=== PATIENT | male | born 1940 | race Caucasian/White ===

== ENCOUNTER 2022-04-20 17:01 | Inpatient (IN) | payer OTHER ==
[~2022-04-20] VITALS: Ht 165.1 cm; Wt 65.8 kg
[2022-04-20] MEDS ORDERED: DEXTROSE 50% JECT 50 ML DISP.SYRIN ONE (17:11)
[2022-04-20 17:14] VITALS: BP_SYST 120
--- NOTE | 2022-04-20 17:20 | NUR ---
PT BIBA AWAKE AND CONFUSED, AOX1. PT BROUGHT IN FROM [facility] FOR RESPIRATORY DISTRESS, ALTERED AND HYPOGLYCEMIC. PT BS WAS 78 UPON ARRIVAL. PT O2 WAS 98% ON RA. PT HAS HX OF CHF, DM2, MO, COLON CANCER, BOWEL RESECTION W WOUND VAC.
--- NOTE | 2022-04-20 17:21 | NUR ---
MD DR AMAYA AT BEDSIDE
[2022-04-20 17:45] LABS: BASOPHILS % (AUTO) 0.5 % (0.0-2.0); EOSINOPHILS # (AUTO) 0.2 K/uL (0.0-0.4); EOSINOPHILS % (AUTO) 2.1 % (0.0-4.0); HEMATOCRIT 23.6 % (36-54); LYMPHOCYTES # (AUTO) 0.6 K/uL (1.0-5.5); LYMPHOCYTES % (AUTO) 6.4 % (20.5-51.5); MEAN CORPUSCULAR HEMOGLOBIN 29 pg (27-31); MEAN CORPUSCULAR HGB CONC 33 % (32-36); MEAN CORPUSCULAR VOLUME 88 fL (79.0-98.0); MONOCYTES # (AUTO) 0.9 K/uL (0.0-1.0); MONOCYTES % (AUTO) 9.8 % (1.7-9.3); NEUTROPHILS # (AUTO) 7.1 K/uL (1.8-7.7); NEUTROPHILS % (AUTO) 81.2 % (40.0-70.0); PLATELET COUNT (AUTO) 317 K/uL (130-430); RED BLOOD CELL COUNT(AUTO) 2.68 MIL/uL (4.2-6.2); WHITE BLOOD COUNT (AUTO) 8.8 K/uL (4.8-10.8)
[2022-04-20 17:48] LABS: HEMOGLOBIN 7.8 g/dL (14.0-18.0)
[2022-04-20] MEDS ORDERED: APIX2.5T PO (17:49)
[2022-04-20] MEDS ORDERED: GLIP10TA21 PO (17:49)
[2022-04-20] MEDS ORDERED: LINE600T15 PO (17:49)
[2022-04-20] MEDS ORDERED: DOCU-144 PO (17:49)
[2022-04-20] MEDS ORDERED: BISA-79 PO (17:49)
[2022-04-20] MEDS ORDERED: GABA-529 PO (17:49)
[2022-04-20] MEDS ORDERED: ATOR40TA68 PO (17:49)
[2022-04-20] MEDS ORDERED: FER300L PO (17:49)
[2022-04-20] MEDS ORDERED: CARV12.548 PO (17:49)
--- NOTE | 2022-04-20 17:50 | NUR ---
COVID AND MRSA SWABS COLLECTED AND SENT TO LAB.
[2022-04-20 17:56] LABS: ANION GAP 5 (5-15); CALCIUM 7.7 mg/dL (8.4-11.0); CHLORIDE 103 mmol/L (98-107); CREATININE 2.04 mg/dL (0.55-1.30); GLUCOSE 83 mg/dL (70-99); INR 1.3 (0.80-1.20); PROTHROMBIN TIME 12.9 SECS (9.5-12.5); UREA NITROGEN, BLOOD 48 mg/dL (8-21)
[2022-04-20] MEDS ORDERED: PANT40GR (17:56)
[2022-04-20] MEDS ORDERED: METR500T PO (17:56)
[2022-04-20] MEDS ORDERED: INSU100V7 SUBCUT (17:56)
[2022-04-20] MEDS ORDERED: THIA100T73 (17:56)
[2022-04-20] MEDS ORDERED: VALS80TA31 (17:56)
[2022-04-20] MEDS ORDERED: MULT-1117 (17:56)
[2022-04-20] MEDS ORDERED: LACT1CAP69 (17:56)
[2022-04-20] MEDS ORDERED: MOM PO (17:56)
[2022-04-20] MEDS ORDERED: SENN-153 (17:56)
[2022-04-20] MEDS ORDERED: DEXTROSE 50% JECT 50 ML DISP.SYRIN IVP ONE (18:00)
[2022-04-20] MEDS ORDERED: NACL 0.9% 1,000 ML IV ONE ×2 (18:00→18:30)
[2022-04-20 18:01] LABS: ALANINE AMINOTRANSFERASE 22 U/L (12-78); ALBUMIN 1.3 g/dL (3.4-4.8); ASPARTATE AMINOTRANSFERASE 23 U/L (10-37); TOTAL BILIRUBIN 0.5 mg/dL (0.0-1.0)
--- NOTE | 2022-04-20 18:08 | NUR ---
MD DR AMAYA AT BEDSIDE TO PLACE CENTRAL LINE
[2022-04-20] MEDS ORDERED: NOREPINEPHRINE BITARTRATE 4 MG in NS 246 ML IV ONE (18:30)
--- NOTE | 2022-04-20 18:32 | NUR ---
XRAY AT BEDSIDE
--- NOTE | 2022-04-20 18:42 | NUR ---
PT TAKEN TO CT IN [facility] WITH NURSE AT BEDSIDE.
--- NOTE | 2022-04-20 19:16 | NUR ---
REPORT GIVEN TO ROMY VILLALOBOS. PT IN STABLE CONDITION.
--- NOTE | 2022-04-20 19:24 | NUR ---
Received report from Kevin RN Pt resting comfortably in bed VSS Verbally responsive Family bedside Will continue to monitor
--- NOTE | 2022-04-20 19:25 | NUR ---
Admit bed requested Patient will be admitted to care of . Admitted to ICU unit. Diagnosis Renal Failure, Hypotension Inpatient (Yes or No) No Observation (Yes or No) No Orientation concerns or request close to nursing station (Yes or No) yes Covid Status Pending On vent or bipap No Isolation requirements No Needs a sitter No From Home (Yes or if No enter name of facility) Facility, [facility] Requires Dialysis (Yes or No) No Med Rec Completed (Yes of No) Yes
[2022-04-20] MEDS ORDERED: D5NS 500 ML IV SCH (19:30)
--- NOTE | 2022-04-20 21:45 | NUR ---
Pt resting comfortably at this time AOX1-2 VSS Will continue to monitor
--- NOTE | 2022-04-21 06:47 | NUR ---
Pt resting comfortably in bed AOX4 VSS Able to make needs known Will continue to monitor
--- NOTE | 2022-04-21 07:13 | NUR ---
Gave report to WILFREDO Lopez
--- NOTE | 2022-04-21 07:24 | NUR ---
Received report from Ar VILLALOBOS. Pt noted to be awake a/o x4 and verbally responsive. Breathing even and unlabored. No acute distress noted. IV sites clean, dry, intact and patent. Pt denies of any complaints at this time. Safety measures in place.
--- NOTE | 2022-04-21 08:08 | NUR ---
paged md christensen for possible downgrade to tele. awaiting call back
--- NOTE | 2022-04-21 08:18 | NUR ---
MD christensen called back and verbalized to downgrade pt from ICU to tele.
--- NOTE | 2022-04-21 09:23 | NUR ---
PROVIDED BEDSIDE REPORT TO WILFREDO ACUÑA. PT TRANSFERRED ONTO TELE BED A IN ROOM 112. PT AWAKE, A/O X4 AND VERBALLY RESPONSIVE. NO ACUTE DISTRESS NOTED. BREATHING EVEN AND UNLABORED. NO CHANGES NOTED.
--- NOTE | 2022-04-21 09:29 | NUR ---
CONSULTATION PAGED/CALLED Reason for Consultation: [] RENAL FAIL Person Who was Notified: [] ASHLEY Consulting Physician: [] DR DIOP Ict Systems Test Engineer Specialty: [] PULMO Ordering Physician: [] DR KOEHLER
--- NOTE | 2022-04-21 09:35 | NUR ---
CONSULTATION PAGED/CALLED Reason for Consultation: [] RENAL FAIL Person Who was Notified: GOSIA Consulting Physician: [] SANJUANITA WILDE Otter Trawler Boatswain Specialty: [] NEPHRO Ordering Physician: [] DR KOEHLER
[2022-04-21 09:45] VITALS: BP_SYST 121
[2022-04-21 09:52] VITALS: BP_SYST 121
[2022-04-21 12:00] VITALS: BP_SYST 125
[2022-04-21] MEDS ORDERED: MILK OF MAGNESIA 30 ML UDC PO PRN (12:00)
--- NOTE | 2022-04-21 15:18 | NUR ---
CONSULTATION PAGED/CALLED Reason for Consultation: AMS Person Who was Notified: DR GIBSON Consulting Physician: MALLORY GIBSON Ordering Physician: MARSHALL KOEHLER
[2022-04-21 16:00] VITALS: BP_SYST 123
[2022-04-21] MEDS: metroNIDAZOLE 500 MG TABLET PO SCH ×2 (16:34→20:26)
[2022-04-21] MEDS ORDERED: INSULIN REGULAR, HUMAN 100 UNITS/ML, 3 ML VIAL SUBCUT SCH (17:00)
[2022-04-21] MEDS: INSULIN REGULAR, HUMAN 100 UNITS/ML, 3 ML VIAL (humuLIN R) SUBCUT PRN ×2 (17:57→20:33)
--- NOTE | 2022-04-21 19:25 | NUR ---
OPENING NOTE PT IS WORKING WITH PT, SON BEDSIDE. NO APPARENT DISTRESS NOTED AT THIS TIME. BED IN LOWEST POSITION WITH FALL AND SAFETY PRECAUTIONS IN PLACE. CALL LIGHT WITHIN REACH.
[2022-04-21 20:00] VITALS: BP_SYST 167
[2022-04-21] MEDS: GABAPENTIN 100 MG CAPSULE PO SCH (20:26)
[2022-04-21] MEDS: DOCUSATE SODIUM 100 MG CAPSULE PO SCH (20:26)
[2022-04-21] MEDS: LINEZOLID 600 MG TABLET PO SCH (20:26)
[2022-04-21] MEDS: LACTOBACILLUS RHAMNOSUS GG 1 CAP CAPSULE PO SCH (20:26)
[2022-04-21] MEDS: D5NS 1,000 ML IV SCH (20:26)
[2022-04-21] MEDS: ATORVASTATIN 20 MG TABLET PO SCH (20:26)
[2022-04-21] MEDS: CARVEDILOL 12.5 MG TABLET (COREG) PO SCH (20:27)
[2022-04-21] MEDS: APIXABAN 2.5 MG TABLET PO SCH (20:31)
[2022-04-21] MEDS ORDERED: VALSARTAN Non-Formulary 80 MG TABLET PO SCH (21:00)
[2022-04-22 00:17] VITALS: BP_SYST 97
--- NOTE | 2022-04-22 00:20 | NUR ---
ROUNDS PT LYING IN WITH EYES CLOSED. NO APPARENT SIGNS OF DISTRESS NOTED. CALL LIGHT WITHIN REACH. FAYE DRAINING TO GRAVITY.
--- NOTE | 2022-04-22 02:20 | NUR ---
ROUNDS PT LYING IN WITH EYES CLOSED. NO APPARENT SIGNS OF DISTRESS NOTED. CALL LIGHT WITHIN REACH. FAYE DRAINING TO GRAVITY.
[2022-04-22] MEDS: D5NS 1,000 ML IV SCH ×2 (06:18→15:59)
--- NOTE | 2022-04-22 06:24 | NUR ---
CLOSING NOTE PT REPOSITIONED IN BED. PT IS SITTING UP IN BED DRINKING COFFEE. NO APPARENT SIGNS OF DISTRESS NOTED AT THIS TIME. BED IN LOWEST POSITION. IV FLUIDS RUNNING ORDERED. FAYE DRAINING TO GRAVITY. CALL LIGHT WITHIN REACH.
[2022-04-22 07:32] LABS: BASOPHILS # (AUTO) 0.1 K/uL (0.0-0.2); BASOPHILS % (AUTO) 1.4 % (0.0-2.0); EOSINOPHILS # (AUTO) 0.4 K/uL (0.0-0.4); EOSINOPHILS % (AUTO) 5.1 % (0.0-4.0); HEMATOCRIT 24.6 % (36-54); HEMOGLOBIN 8.4 g/dL (14.0-18.0); LYMPHOCYTES # (AUTO) 1.2 K/uL (1.0-5.5); LYMPHOCYTES % (AUTO) 15.2 % (20.5-51.5); MEAN CORPUSCULAR HEMOGLOBIN 30 pg (27-31); MEAN CORPUSCULAR HGB CONC 34 % (32-36); MEAN CORPUSCULAR VOLUME 89 fL (79.0-98.0); MONOCYTES # (AUTO) 0.8 K/uL (0.0-1.0); MONOCYTES % (AUTO) 10.3 % (1.7-9.3); NEUTROPHILS # (AUTO) 5.5 K/uL (1.8-7.7); PLATELET COUNT (AUTO) 310 K/uL (130-430); RED BLOOD CELL COUNT(AUTO) 2.77 MIL/uL (4.2-6.2); RED CELL DISTRIBUTION WIDTH 16.8 % (9.0-15.0); WHITE BLOOD COUNT (AUTO) 8.1 K/uL (4.8-10.8)
[2022-04-22 08:00] VITALS: BP_SYST 112
[2022-04-22 08:13] LABS: ANION GAP 7 (5-15); CALCIUM 7.2 mg/dL (8.4-11.0); CHLORIDE 107 mmol/L (98-107); CREATININE 1.63 mg/dL (0.55-1.30); GLUCOSE 196 mg/dL (70-99); PHOSPHORUS 3.7 mg/dL (2.7-4.5); UREA NITROGEN, BLOOD 32 mg/dL (8-21)
[2022-04-22] MEDS: THIAMINE HCL 100 MG TABLET PO SCH (08:50)
[2022-04-22] MEDS: glipiZIDE XL 5 MG TAB ( GLUCOTROL XL) PO SCH (08:50)
[2022-04-22] MEDS: PANTOPRAZOLE SODIUM 40 MG TAB PO SCH (08:50)
[2022-04-22] MEDS: FERROUS SULFATE 300 MG/5 ML UDC PO SCH (08:51)
[2022-04-22] MEDS: metroNIDAZOLE 500 MG TABLET PO SCH ×3 (08:51→21:46)
[2022-04-22] MEDS: LINEZOLID 600 MG TABLET PO SCH ×2 (08:51→21:45)
[2022-04-22] MEDS: LACTOBACILLUS RHAMNOSUS GG 1 CAP CAPSULE PO SCH ×2 (08:52→21:45)
[2022-04-22] MEDS: MULTIVITAMINS TAB 1 TABLET PO SCH (08:52)
[2022-04-22] MEDS: DOCUSATE SODIUM 100 MG CAPSULE PO SCH (08:52)
[2022-04-22] MEDS: CARVEDILOL 12.5 MG TABLET (COREG) PO SCH ×2 (08:53→21:00)
[2022-04-22] MEDS: APIXABAN 2.5 MG TABLET PO SCH ×2 (08:54→21:47)
[2022-04-22] MEDS ORDERED: SENNOSIDES 8.6 MG TABLET PO SCH (09:00)
[2022-04-22] MEDS ORDERED: PANTOPRAZOLE GRANULES PACKET 40 MG PO SCH (09:00)
[2022-04-22] MEDS ORDERED: BISACODYL 5 MG TABLET.DR (DULCOLAX) PO SCH (09:00)
[2022-04-22] MEDS: INSULIN REGULAR, HUMAN 100 UNITS/ML, 3 ML VIAL (humuLIN R) SUBCUT PRN ×2 (12:07→21:59)
--- NOTE | 2022-04-22 12:15 | NUR ---
CONSULTATION PAGED/CALLED Reason for Consultation: [] SEPSIS Person Who was Notified: [] ELIUD Consulting Physician: [] DR MACHUCA/ DR STERN PALS NURSE Production Floater Specialty: [] ID Ordering Physician: [] DR KOEHLER/DR BUCIO
--- NOTE | 2022-04-22 12:20 | NUR ---
CONSULTATION PAGED/CALLED Reason for Consultation: [] ABDOMINAL DRAINAGE Person Who was Notified: [] DR JASON Consulting Physician: [] DR JASON, A Residential Door Unit Installer Specialty: [] GEN SURGEON Ordering Physician: [] DR KOEHLER
[2022-04-22 12:32] VITALS: BP_SYST 127
--- NOTE | 2022-04-22 14:30 | NUR ---
DR. JASON CALLED AND UPDATED ON PATIENT'S CONDITION. PATIENT IS ALERT AND ORIENTED X 4, S/P BOWEL RESECTION TWO WEEKS AGO PER FAMILY. JOSE ALFREDO ON THE LEFT SIDE OF ABDOMEN DRAINING MODERATE TO LARGE AMOUNT OF SEROUS FLUID. DR. JASON STATED TO INFORM FAMILY TO CALL THE SURGEON OR TO HAVE A FOLLOW APPOINTMENT. INFORMED SON ABOUT DR. JASON'S RECOMMENDATION, SON VERBALIZED UNDERSTANDING.
--- NOTE | 2022-04-22 14:52 | NUR ---
Dietitian Recommendations * Continue consistent CHO diet * Ordered: Monica HUGGINS * Consider obtaining Hgba1c value GS, MPH, RD Please refer to RD Assessment for further details. Thanks! Addendum: 04/22/22 at [address] Amended: Links added.
--- NOTE | 2022-04-22 15:30 | NUR ---
DR. GLASS CALLED AND EXPLAINED THE RESULT OF CT OF THE ABDOMEN AND SUGGESTED TO MONITOR HEMOGLOBIN LEVEL. DR. KOEHLER MADE AWARE AND STATED TO HAVE LABS BE DONE IN THE MORNING.
[2022-04-22 16:00] VITALS: BP_SYST 117
--- NOTE | 2022-04-22 19:30 | NUR ---
CHANGE OF SHIFT: endorsed by day shift with DX Hypotension and Renal Failure. Hx of abdominal surgery 2 weeks ago from other hospital. on safety precautions. no distress. call light at bedside.
--- NOTE | 2022-04-22 19:47 | NUR ---
DR. JASON SUGGESTED THAT NO LAXATIVES FOR NOW SINCE PATIENT JUST HAD A RECENT SURGERY OF THE BOWEL. INFORMED DR. KOEHLER WITH ORDER TO HOLD LAXATIVES UNTIL FURTHER ORDER.
[2022-04-22 20:00] VITALS: BP_SYST 114
--- NOTE | 2022-04-22 21:30 | NUR ---
NOTES: pt. awakened. checked post op incision with reji intact and open to air. J belle x1 with seous light beige color drainage. offered pain medication,does not want any more drugs per pt. IVF infusing via left jugular site. Jeff cath on rt. jugular site. promotional marketing agent shows sinus rhythm. bond cath to osd. bed alarm on.
[2022-04-22] MEDS: ATORVASTATIN 20 MG TABLET PO SCH (21:46)
[2022-04-22] MEDS: GABAPENTIN 100 MG CAPSULE PO SCH (21:55)
--- NOTE | 2022-04-22 22:00 | NUR ---
NOTES: pt. medication given. BS checked 157, sliding scale coverage given. repositioned. kept warm and comfortable. call light ay bedside.
--- NOTE | 2022-04-22 22:30 | NUR ---
NOTES: urine sent to lab for random creatinine andsodium as ordered today.
--- NOTE | 2022-04-23 00:15 | NUR ---
NOTES: woke up for VS. repositioned. IVF continuous. Jpratt drained.needs attended.
[2022-04-23 00:38] VITALS: BP_SYST 131
--- NOTE | 2022-04-23 02:00 | NUR ---
NOTES: pt. sleeping when made rounds. cardiac pattern unchanged.
--- NOTE | 2022-04-23 04:00 | NUR ---
NOTES: pt. remain sleeping. no complaints noted.
--- NOTE | 2022-04-23 05:45 | NUR ---
NOTES: awakened, repositionedandchanged pad. note to have productive cough. kept on room air. IVF infusing.
[2022-04-23] MEDS: D5NS 1,000 ML IV SCH ×3 (06:03→21:36)
--- NOTE | 2022-04-23 06:36 | NUR ---
CLOSING NOTES; BS checked 118. IV intact and bond. J belle in place. post op incision dry with reji. needs attended. for further care and observation. will endorse to incoming shift.
[2022-04-23 06:51] LABS: BASOPHILS # (AUTO) 0.1 K/uL (0.0-0.2); BASOPHILS % (AUTO) 0.9 % (0.0-2.0); EOSINOPHILS # (AUTO) 0.4 K/uL (0.0-0.4); HEMATOCRIT 23.4 % (36-54); LYMPHOCYTES # (AUTO) 1.2 K/uL (1.0-5.5); LYMPHOCYTES % (AUTO) 14.7 % (20.5-51.5); MEAN CORPUSCULAR HEMOGLOBIN 30 pg (27-31); MEAN CORPUSCULAR HGB CONC 34 % (32-36); MEAN CORPUSCULAR VOLUME 88 fL (79.0-98.0); MONOCYTES % (AUTO) 11.8 % (1.7-9.3); NEUTROPHILS # (AUTO) 5.5 K/uL (1.8-7.7); NEUTROPHILS % (AUTO) 67.6 % (40.0-70.0); PLATELET COUNT (AUTO) 298 K/uL (130-430); RED BLOOD CELL COUNT(AUTO) 2.65 MIL/uL (4.2-6.2); RED CELL DISTRIBUTION WIDTH 17.3 % (9.0-15.0); WHITE BLOOD COUNT (AUTO) 8.1 K/uL (4.8-10.8)
[2022-04-23 07:28] LABS: ALANINE AMINOTRANSFERASE 19 U/L (12-78); ANION GAP 6 (5-15); ASPARTATE AMINOTRANSFERASE 31 U/L (10-37); C-REACTIVE PROTEIN QUANT 6.2 mg/dL (0-0.5); CHLORIDE 107 mmol/L (98-107); GLUCOSE 128 mg/dL (70-99); PHOSPHORUS 3.4 mg/dL (2.7-4.5); TOTAL BILIRUBIN 0.4 mg/dL (0.0-1.0); UREA NITROGEN, BLOOD 30 mg/dL (8-21)
--- NOTE | 2022-04-23 08:15 | NUR ---
OPENING NOTES: RECEIVED BEDSIDE SBAR FROM PM SHIFT NURSE, PATIENT IS STABLE NO S/S OF ANY DISTRESS AT THIS TIME, PATIENT IS RESTING IN BED WITH EYES CLOSED, SAFETY CHECKS DONE AND WILL DO THOUGHT THE DAY,
[2022-04-23 08:38] LABS: ERYTHROCYTE SEDIMENTATION RATE 34 MM/HR (0-15)
[2022-04-23] MEDS: FERROUS SULFATE 300 MG/5 ML UDC PO SCH (09:53)
[2022-04-23] MEDS: THIAMINE HCL 100 MG TABLET PO SCH (10:01)
[2022-04-23] MEDS: metroNIDAZOLE 500 MG TABLET PO SCH (10:01)
[2022-04-23] MEDS: glipiZIDE XL 5 MG TAB ( GLUCOTROL XL) PO SCH (10:01)
[2022-04-23] MEDS: CARVEDILOL 12.5 MG TABLET (COREG) PO SCH ×2 (10:01→20:16)
[2022-04-23] MEDS: MULTIVITAMINS TAB 1 TABLET PO SCH (10:02)
[2022-04-23] MEDS: LINEZOLID 600 MG TABLET PO SCH (10:02)
[2022-04-23] MEDS: LACTOBACILLUS RHAMNOSUS GG 1 CAP CAPSULE PO SCH ×2 (10:02→20:16)
[2022-04-23] MEDS: PANTOPRAZOLE SODIUM 40 MG TAB PO SCH (10:02)
[2022-04-23] MEDS: APIXABAN 2.5 MG TABLET PO SCH ×2 (10:05→20:19)
[2022-04-23] MEDS ORDERED: POTASSIUM CHLORIDE 20 MEQ TAB.PRT.SR PO ONE (11:15)
[2022-04-23] MEDS: cefTRIAXone 1 GM in D5W 50 ML IV SCH (11:26)
[2022-04-23 12:00] VITALS: BP_SYST 129
[2022-04-23] MEDS: INSULIN REGULAR, HUMAN 100 UNITS/ML, 3 ML VIAL (humuLIN R) SUBCUT PRN (12:20)
[2022-04-23] MEDS ORDERED: EPOETIN ALFA 20,000 UNITS/ML VIAL SUBCUT ONE (13:30)
--- NOTE | 2022-04-23 15:13 | NUR ---
SURGEON AT [facility] ALICE DR: BART [phone]
[2022-04-23 16:25] VITALS: BP_SYST 130
--- NOTE | 2022-04-23 20:00 | NUR ---
Opening note- pt awake and oriented. Tongan speaking. v/s stable afebrile. Tele- SR. Triple lumen Central line on Rt EJ- patent and present blood return from white and blue lumen. Brown lumen-unable to flush and no blood return. 18g Angiocath on Left EJ with D5NS at 100 ml/hr. F/c patent.
[2022-04-23 20:03] VITALS: BP_SYST 137
[2022-04-23] MEDS: ATORVASTATIN 20 MG TABLET PO SCH (20:17)
[2022-04-23] MEDS: GABAPENTIN 100 MG CAPSULE PO SCH (20:20)
[2022-04-24 00:55] VITALS: BP_SYST 142
[2022-04-24] MEDS: INSULIN REGULAR, HUMAN 100 UNITS/ML, 3 ML VIAL (humuLIN R) SUBCUT PRN ×2 (06:27→21:10)
[2022-04-24] MEDS: D5NS 1,000 ML IV SCH ×2 (06:30→18:17)
[2022-04-24 07:08] LABS: BASOPHILS # (AUTO) 0.1 K/uL (0.0-0.2); BASOPHILS % (AUTO) 1.3 % (0.0-2.0); EOSINOPHILS # (AUTO) 0.3 K/uL (0.0-0.4); EOSINOPHILS % (AUTO) 4.6 % (0.0-4.0); HEMATOCRIT 24.1 % (36-54); HEMOGLOBIN 8.2 g/dL (14.0-18.0); LYMPHOCYTES % (AUTO) 13.2 % (20.5-51.5); MEAN CORPUSCULAR HEMOGLOBIN 30 pg (27-31); MEAN CORPUSCULAR HGB CONC 34 % (32-36); MEAN CORPUSCULAR VOLUME 89 fL (79.0-98.0); MONOCYTES # (AUTO) 0.8 K/uL (0.0-1.0); MONOCYTES % (AUTO) 10.1 % (1.7-9.3); NEUTROPHILS # (AUTO) 5.4 K/uL (1.8-7.7); NEUTROPHILS % (AUTO) 70.8 % (40.0-70.0); PLATELET COUNT (AUTO) 290 K/uL (130-430); RED BLOOD CELL COUNT(AUTO) 2.71 MIL/uL (4.2-6.2); RED CELL DISTRIBUTION WIDTH 16.9 % (9.0-15.0); WHITE BLOOD COUNT (AUTO) 7.6 K/uL (4.8-10.8)
[2022-04-24 07:13] LABS: ALANINE AMINOTRANSFERASE 15 U/L (12-78); ANION GAP 6 (5-15); ASPARTATE AMINOTRANSFERASE 24 U/L (10-37); CHLORIDE 108 mmol/L (98-107); CREATININE 1.58 mg/dL (0.55-1.30); GLUCOSE 176 mg/dL (70-99); TOTAL BILIRUBIN 0.2 mg/dL (0.0-1.0); UREA NITROGEN, BLOOD 23 mg/dL (8-21)
[2022-04-24 07:16] LABS: CALCIUM 6.9 mg/dL (8.4-11.0)
--- NOTE | 2022-04-24 07:30 | NUR ---
Closing note-pt remains stable. LLQ JOSE ALFREDO drained 1300 ml for 12 hr. No c/o any pain. Mid-abdominal incisions with reji intact. No bm. BS-172 mg/dl and given RI 2 unit this am. IVF D5NS @ 100 ml/hr. Educated and increased to use ICS.
--- NOTE | 2022-04-24 07:52 | NUR ---
PHYSICAL THERAPY CO-SIGN The Physical Therapy Progress Notes documented by Machine Tool Electrician have been reviewed. Reviewed/Co-Signed by: Stas Murdock Documentation Done by:SATINDER TINSLEY Addendum: 04/24/22 at 0752 by Stas Murdock PT Amended: Links added.
--- NOTE | 2022-04-24 08:03 | NUR ---
OPENING NOTES: RECEIVED BEDSIDE SBAR FROM PM SHIFT NURSE. PATIENT RESTING IN BED WITH EYES CLOSED NO S/S OF ANY DISTRESS, BED AT LOW AND LOCKED POSITION, CALL LIGHTING REACH, ALL SAFETY CHECKS DONE AND WILL DO THOUGHT THE DAY. WILL MONITOR PATIENT PER ORDERS.
--- NOTE | 2022-04-24 08:45 | NUR ---
CALLED DR TIMMONS MANUELITO 6.9, DOCTOR WILL BE IN A FEW. NO NEW ORDERS AT THIS TIME
[2022-04-24] MEDS: FERROUS SULFATE 300 MG/5 ML UDC PO SCH (09:09)
[2022-04-24] MEDS: LACTOBACILLUS RHAMNOSUS GG 1 CAP CAPSULE PO SCH ×2 (09:09→21:05)
[2022-04-24] MEDS: THIAMINE HCL 100 MG TABLET PO SCH (09:11)
[2022-04-24] MEDS: PANTOPRAZOLE SODIUM 40 MG TAB PO SCH (09:11)
[2022-04-24] MEDS: CARVEDILOL 12.5 MG TABLET (COREG) PO SCH ×2 (09:11→21:00)
[2022-04-24] MEDS: MULTIVITAMINS TAB 1 TABLET PO SCH (09:12)
[2022-04-24] MEDS: glipiZIDE XL 5 MG TAB ( GLUCOTROL XL) PO SCH (09:12)
[2022-04-24] MEDS: APIXABAN 2.5 MG TABLET PO SCH ×2 (09:14→21:04)
[2022-04-24 11:22] VITALS: BP_SYST 107
--- NOTE | 2022-04-24 12:30 | NUR ---
ROUNDS: PATIENT REMAINS STABLE , NO S/S OF ANY DISTRESS RESTING WELL IN BED
[2022-04-24] MEDS: cefTRIAXone 1 GM in D5W 50 ML IV SCH (12:53)
--- NOTE | 2022-04-24 13:38 | NUR ---
Nutrition F/U RD reviewed pts current EMR including diet hx, physician notes, nursing notes, pertinent labs/meds/procedures, care trends and care activity. Short note d/t high workload Subjective Information RD rounded to pt room and was able to speak briefly w/ him; pt is mostly Lao speaking. He does not want the glucerna anymore as they hurt his stomach. RD said she would DC. Pt reports that he has still not had BM and is feeling very uncomfortable. RD asked about his appetite but he says he cant eat much d/t his stomachache. RD brought him back diet soda to help calm his stomach. Per EMR review: abd soft, non-distended w/ active bowel sounds; Damir: 17, BP 107/59 L, no documented BM. Current Diet Order/Nutrition Support Consistent CHO, Glucerna BID x 2 days % PO intake Poor avg of 27% 7 meals Last BM None documented Estimated Energy Expenditure (kcals/day) 4789-6925 kcal (25-30 kcal/kg CBW d/t GERIAT) Estimated Protein Required (g/day) 53-86g (0.8-1.3 g/kg CBW d/t JORGE and abd incision) Estimated Fluid Required (l/day) 1.6-1.9 (1mL/kcal maintenance) Problem/Etiology/Signs/Symptoms * Altered nutrition-related labs r/t kidney dysfunction AEB elevated BUN, Cre (Improving) Expected Outcomes/Goals PO intake provides >85% estimated nutrient needs, nutrition-related labs trending WNL, improvements in skin integrity, BM q1-3 days Dietitian Recommendations * Continue consistent CHO diet * DC Glucerna BID as pt does not want it; RD completed * Consider obtaining Hgba1c value * Consider bowel regimen as pt feels constipated and has no documented BM in 4 days Follow up *Moderate risk: see pt in 3-5 days GS, MPH, RD
--- NOTE | 2022-04-24 13:39 | NUR ---
Dietitian Recommendations * Continue consistent CHO diet * DC Glucerna BID as pt does not want it; RD completed * Consider obtaining Hgba1c value * Consider bowel regimen as pt feels constipated and has no documented BM in 4 days GS, MPH, RD Please refer to Nutrition F/U for further details. Thanks!
[2022-04-24 15:31] VITALS: BP_SYST 111
--- NOTE | 2022-04-24 15:36 | NUR ---
PHYSICAL THERAPY CO-SIGN The Physical Therapy Progress Notes documented by Liquefaction And Regasification Helper have been reviewed. Reviewed/Co-Signed by: Stas Murdock Documentation Done by:SATINDER TINSLEY Addendum: 04/24/22 at 1536 by Stas Murdock PT Amended: Links added.
--- NOTE | 2022-04-24 17:34 | NUR ---
PAGED DR Fito JASON FROM SURGERY CONSULT. SPOKE WITH EXCHANGE
--- NOTE | 2022-04-24 19:09 | NUR ---
SPOKE WITH DR JASON, DOESNT WANT TO TOUCH PATIENT, IF STABLE OK TO D/C BACK TO SURGEON WHO DID SURGERY.
[2022-04-24 19:45] VITALS: BP_SYST 102
--- NOTE | 2022-04-24 19:45 | NUR ---
PM ASSESSMENT; -Patient is awake, alert, oriented X 4. TLC rt neck patent drsg cdi. Discussed poc and all safety measures, pt verbalized understanding. Fall precaution in place. Pt denies any chest pain,pain,sob,or any acute distress. Patient oriented to hospital room, call light, toileting, pain management and safety-teach back done. Call light within reach, side rails x3. Couch cath w/ gravity drains yellow urine output. JOSE ALFREDO drains light cloudy drainage output. Mikal BUE edematous +3 noted. VSS. Saline salma of left jugular patent drsg cdi. Cont to monitor pt.
[2022-04-24] MEDS: GABAPENTIN 100 MG CAPSULE PO SCH (21:04)
[2022-04-24] MEDS: ATORVASTATIN 20 MG TABLET PO SCH (21:04)
--- NOTE | 2022-04-25 00:26 | NUR ---
ROUNDS; -Pt is resting in bed comfortably. Pt denies any chest pain,pain,sob,or any acute distress. IVF infusing well, no s/s any infiltration noted. Call light within reach, side rails x3, bed alarmed. Emptied 500ml white cloudy drainage from JOSE ALFREDO. Cont to monitor pt.
[2022-04-25 01:02] VITALS: BP_SYST 125
--- NOTE | 2022-04-25 03:51 | NUR ---
ROUNDS; -Pt is resting in bed comfortably. Pt denies any chest pain,pain,sob,or any acute distress. IVF infusing well, no s/s any infiltration noted. Call light within reach, side rails x3, bed alarmed. Emptied 50ml white cloudy drainage from JOSE ALFREDO. Cont to monitor pt.
[2022-04-25] MEDS: D5NS 1,000 ML IV SCH ×2 (04:18→13:30)
--- NOTE | 2022-04-25 06:24 | NUR ---
CLOSING NOTES; -Pt is resting in bed comfortably. Pt denies any chest pain,pain,sob,or any acute distress. IVF infusing well, no s/s any infiltration noted. Call light within reach, side rails x3, bed alarmed. JOSE ALFREDO of left lower abd drains white cloudy output. Couch cath w/ gravity drains tari urine output. Pt's condition stable. Will endorse to next day shift nurse to cont care.
--- NOTE | 2022-04-25 07:30 | NUR ---
OPENING NOTES; PT RESTING IN BED, IVF RUNNING ORDERED. NO IV INFILTRATION OR INFECTION NOTED. BED IS LOCKED AND AT LOW POSITION. SAFETY PRECAUTION IN PLACE. CALL LIGHT WITHIN REACH. BED ALARM ON. WILL CONT TO MONITOR
[2022-04-25 07:35] LABS: BASOPHILS # (AUTO) 0.1 K/uL (0.0-0.2); BASOPHILS % (AUTO) 1.3 % (0.0-2.0); EOSINOPHILS # (AUTO) 0.4 K/uL (0.0-0.4); HEMATOCRIT 24.8 % (36-54); HEMOGLOBIN 8.2 g/dL (14.0-18.0); LYMPHOCYTES # (AUTO) 1.3 K/uL (1.0-5.5); LYMPHOCYTES % (AUTO) 16.7 % (20.5-51.5); MEAN CORPUSCULAR HEMOGLOBIN 30 pg (27-31); MEAN CORPUSCULAR HGB CONC 33 % (32-36); MEAN CORPUSCULAR VOLUME 90 fL (79.0-98.0); MONOCYTES # (AUTO) 0.9 K/uL (0.0-1.0); MONOCYTES % (AUTO) 11.3 % (1.7-9.3); NEUTROPHILS # (AUTO) 5.3 K/uL (1.8-7.7); NEUTROPHILS % (AUTO) 65.7 % (40.0-70.0); PLATELET COUNT (AUTO) 284 K/uL (130-430); RED BLOOD CELL COUNT(AUTO) 2.76 MIL/uL (4.2-6.2); RED CELL DISTRIBUTION WIDTH 17.6 % (9.0-15.0)
[2022-04-25 08:00] VITALS: BP_SYST 152
[2022-04-25 08:39] LABS: ALANINE AMINOTRANSFERASE 17 U/L (12-78); ANION GAP 7 (5-15); ASPARTATE AMINOTRANSFERASE 25 U/L (10-37); CALCIUM 7.2 mg/dL (8.4-11.0); CHLORIDE 109 mmol/L (98-107); GLUCOSE 152 mg/dL (70-99); TOTAL BILIRUBIN 0.3 mg/dL (0.0-1.0); UREA NITROGEN, BLOOD 20 mg/dL (8-21)
--- NOTE | 2022-04-25 09:00 | NUR ---
NOTES; AT NURSE'S STATION THAT PT IS MEDICALLY STABLE TO GO BACK. WILL LET DR. BEST KNOW.
[2022-04-25] MEDS: APIXABAN 2.5 MG TABLET PO SCH ×2 (09:16→21:58)
[2022-04-25] MEDS: PANTOPRAZOLE SODIUM 40 MG TAB PO SCH (09:24)
[2022-04-25] MEDS: FERROUS SULFATE 300 MG/5 ML UDC PO SCH (09:24)
[2022-04-25] MEDS: MULTIVITAMINS TAB 1 TABLET PO SCH (09:24)
[2022-04-25] MEDS: LACTOBACILLUS RHAMNOSUS GG 1 CAP CAPSULE PO SCH ×2 (09:24→21:46)
[2022-04-25] MEDS: CARVEDILOL 12.5 MG TABLET (COREG) PO SCH ×2 (09:24→21:47)
[2022-04-25] MEDS: glipiZIDE XL 5 MG TAB ( GLUCOTROL XL) PO SCH (09:24)
[2022-04-25] MEDS: THIAMINE HCL 100 MG TABLET PO SCH (09:24)
--- NOTE | 2022-04-25 09:26 | NUR ---
ROUNDS; AT BEDSIDE, ASSESSING PT. NOTIFIED THAT PER PT IS MEDICALLY STABLE TO GO BACK. MADE DR. BEST AWARE.
[2022-04-25 11:30] VITALS: BP_SYST 153
[2022-04-25] MEDS: cefTRIAXone 1 GM in D5W 50 ML IV SCH (11:33)
--- NOTE | 2022-04-25 14:02 | NUR ---
SON KATHRYN( [phone]) AT BEDSIDE, REQUESTED TO TALK TO DR. BEST. WILL PAGE DR. BEST
--- NOTE | 2022-04-25 14:03 | NUR ---
OVERHEAD PAGED DR. BEST
--- NOTE | 2022-04-25 14:30 | NUR ---
SPOKE WITH DR. BEST, GAVE HIM PT SON(KATHRYN)'S NUMBER. DR. BEST SAID HE WILL CALL THE SON LATER.
--- NOTE | 2022-04-25 14:47 | NUR ---
SON, KATHRYN MOORE WOULD LIKE TO TALK TO HCP CM MS BOLTON. NOTIFIED CM SHOP WORKER CHE TO CALL MR KATHRYN MOORE RE: REQUEST FOR TRANSFER TO [facility]. THE SON ALSO REQUESTED TO SPEAK TO AN IN HOUSE CM. I CALLED THE DIRECTOR OF CASE MGMT MS HINTON TO GIVE TIME TO SPEAK TO THE SON, KATHRYN.
[2022-04-25] MEDS ORDERED: DIATR MEGLU/DIATRIZ SOD 30 ML SOLUTION PO ONE (15:32)
[2022-04-25 15:48] VITALS: BP_SYST 144
--- NOTE | 2022-04-25 16:00 | NUR ---
PHYSICAL THERAPY CO-SIGN The Physical Therapy Progress Notes documented by Digital Account Director have been reviewed. Reviewed/Co-Signed by: Stas Murdock Documentation Done by:SATINDER TINSLEY Addendum: 04/25/22 at 1600 by Stas Murdock PT Amended: Links added.
[2022-04-25] MEDS: INSULIN REGULAR, HUMAN 100 UNITS/ML, 3 ML VIAL (humuLIN R) SUBCUT PRN (16:45)
--- NOTE | 2022-04-25 19:10 | NUR ---
CHANGE OF SHIFT: endorsed by day shift with DX Confusion/Hypotension. no distress. on safety precautions. S/P colon resction from other hospital @ 2 weeks ago prior to admission. call light within reach.
--- NOTE | 2022-04-25 19:28 | NUR ---
OPENING NOTES; PT RESTING IN BED, IVF RUNNING ORDERED. NO IV INFILTRATION OR INFECTION NOTED. BED IS LOCKED AND AT LOW POSITION. SAFETY PRECAUTION IN PLACE. DENIES ANY PAIN OR DISCOMFORT. SON AT BEDSIDE. CALL LIGHT WITHIN REACH. BED ALARM ON. ENDORSED CARE TO MARKER MACHINE NURSE. Addendum: 04/25/22 at 1928 by Salas Carroll RN CLOSING NOTE*
--- NOTE | 2022-04-25 20:15 | NUR ---
NOTES: checked pt. and talking with family member on the phone. no complaints manifested. call light within reach.
[2022-04-25 21:00] VITALS: BP_SYST 146
--- NOTE | 2022-04-25 21:30 | NUR ---
NOTES: checked BS 117. due medicationswill be given po. IVF infusing via rt. jugular. on room air. on fixing carpenter and shows sinus rhythm. abdomeninal incision intact with reji, J belle on left lower quadrant wih light serous drainage. foel cath to osd. both arm swollen nichelle. left side.
[2022-04-25] MEDS: GABAPENTIN 100 MG CAPSULE PO SCH (21:46)
[2022-04-25] MEDS: ATORVASTATIN 20 MG TABLET PO SCH (21:46)
--- NOTE | 2022-04-25 22:30 | NUR ---
NOTES: pt. pulled up in bed and repositioned. coughing up some secretions.
[2022-04-26 00:15] VITALS: BP_SYST 136
--- NOTE | 2022-04-26 01:15 | NUR ---
NOTES: pt. checked and sleeping.
--- NOTE | 2022-04-26 03:15 | NUR ---
NOTES: condition unchanged. been sleeping.
--- NOTE | 2022-04-26 05:00 | NUR ---
NOTES: pt. woke up, cough up some phlegm. no distress.
--- NOTE | 2022-04-26 06:50 | NUR ---
CLOSING NOTES; BS CHECKED 140. IV SITE PATENT. DRAINED FAYE BAG AND J HEAD. ABDOMINAL INCISION INTACT. REPOSITIONED AND PULLED UP IN BED. FOR FURTHER CARE. WILL ENDORSE TO INCOMING SHIFT.
--- NOTE | 2022-04-26 07:30 | NUR ---
OPENING NOTE; PT RESTING IN BED, IV SITE REMAIN PATENT AND CLEAN. NO IV INFILTRATION OR INFECTION NOTED. DENIES ANY PAIN OR DISCOMFORT. BED IS LOCKED AND AT LOW POSITION. CALL LIGHT WITHIN REACH. SAFETY PRECAUTION IN PLACE. WILL CONT TO MONITOR
[2022-04-26 07:57] LABS: ALANINE AMINOTRANSFERASE 16 U/L (12-78); ALBUMIN 0.9 g/dL (3.4-4.8); ANION GAP 5 (5-15); ASPARTATE AMINOTRANSFERASE 27 U/L (10-37); CALCIUM 7.1 mg/dL (8.4-11.0); CHLORIDE 107 mmol/L (98-107); CREATININE 1.59 mg/dL (0.55-1.30); GLUCOSE 144 mg/dL (70-99); TOTAL BILIRUBIN 0.2 mg/dL (0.0-1.0); UREA NITROGEN, BLOOD 17 mg/dL (8-21)
[2022-04-26] MEDS: THIAMINE HCL 100 MG TABLET PO SCH (08:16)
[2022-04-26] MEDS: FERROUS SULFATE 300 MG/5 ML UDC PO SCH (08:16)
[2022-04-26] MEDS: LACTOBACILLUS RHAMNOSUS GG 1 CAP CAPSULE PO SCH ×2 (08:16→20:31)
[2022-04-26] MEDS: CARVEDILOL 12.5 MG TABLET (COREG) PO SCH ×2 (08:17→22:55)
[2022-04-26] MEDS: PANTOPRAZOLE SODIUM 40 MG TAB PO SCH (08:17)
[2022-04-26] MEDS: glipiZIDE XL 5 MG TAB ( GLUCOTROL XL) PO SCH (08:18)
[2022-04-26] MEDS: MULTIVITAMINS TAB 1 TABLET PO SCH (08:19)
[2022-04-26] MEDS: APIXABAN 2.5 MG TABLET PO SCH ×2 (08:20→20:30)
[2022-04-26 09:16] VITALS: BP_SYST 124
--- NOTE | 2022-04-26 09:30 | NUR ---
NOTES; JOSE ALFREDO DRAINAGE EMPTIED.
[2022-04-26 11:23] VITALS: BP_SYST 135
[2022-04-26] MEDS: cefTRIAXone 1 GM in D5W 50 ML IV SCH (11:48)
--- NOTE | 2022-04-26 15:37 | NUR ---
PHYSICAL THERAPY CO-SIGN The Physical Therapy Progress Notes documented by Career Technical Education Teacher have been reviewed. Reviewed/Co-Signed by: Stas Murdock Documentation Done by:SATINDER TINSLEY Addendum: 04/26/22 at 1538 by Stas Murdock PT Amended: Links added.
[2022-04-26 15:59] VITALS: BP_SYST 118
--- NOTE | 2022-04-26 16:00 | NUR ---
SON(KATHRYN)CALLED TO KNOW PT'S PLAN. WILL PAGE DR. BEST TO HAVE HIM TO CALL SON
--- NOTE | 2022-04-26 16:10 | NUR ---
DR. BEST CALLED BACK AND WILL CALL THE SON.
--- NOTE | 2022-04-26 17:43 | NUR ---
NOTES; EMPTIED THE DRAINAGE BAG. PT TOLERATED WELL
--- NOTE | 2022-04-26 18:41 | NUR ---
CLOSING NOTES; PT RESTING IN BED, IV SITE REMAIN INTACT AND CLEAN. NO IV INFILTRATION OR INFECTION NOTED. BED IS LOCKED AND AT LOW POSITION. SAFETY PRECAUTION IN PLACE. LLQ JOSE ALFREDO DRAINAGE EMPTIED FREQUENTLY THROUGHOUT SHIFT.DENIES ANY PAIN OR DISCOMFORT. SON AT BEDSIDE. CALL LIGHT WITHIN REACH. BED ALARM ON. ENDORSED CARE TO SMOCKER NURSE.
[2022-04-26 19:00] VITALS: BP_SYST 113
[2022-04-26] MEDS ORDERED: FUROSEMIDE 20 MG/2 ML VIAL IVP ONE (20:15)
[2022-04-26] MEDS: GABAPENTIN 100 MG CAPSULE PO SCH (20:30)
[2022-04-26] MEDS: ATORVASTATIN 20 MG TABLET PO SCH (20:34)
[2022-04-26] MEDS: INSULIN REGULAR, HUMAN 100 UNITS/ML, 3 ML VIAL (humuLIN R) SUBCUT PRN (20:40)
[2022-04-27 01:34] VITALS: BP_SYST 119
[2022-04-27 08:00] VITALS: BP_SYST 124
[2022-04-27 08:29] LABS: BASOPHILS # (AUTO) 0.1 K/uL (0.0-0.2); BASOPHILS % (AUTO) 1.2 % (0.0-2.0); EOSINOPHILS # (AUTO) 0.4 K/uL (0.0-0.4); EOSINOPHILS % (AUTO) 5.6 % (0.0-4.0); HEMATOCRIT 24.3 % (36-54); HEMOGLOBIN 8.1 g/dL (14.0-18.0); LYMPHOCYTES # (AUTO) 1.3 K/uL (1.0-5.5); LYMPHOCYTES % (AUTO) 17.8 % (20.5-51.5); MEAN CORPUSCULAR HEMOGLOBIN 30 pg (27-31); MEAN CORPUSCULAR HGB CONC 33 % (32-36); MEAN CORPUSCULAR VOLUME 90 fL (79.0-98.0); MONOCYTES % (AUTO) 13.1 % (1.7-9.3); NEUTROPHILS # (AUTO) 4.6 K/uL (1.8-7.7); NEUTROPHILS % (AUTO) 62.3 % (40.0-70.0); PLATELET COUNT (AUTO) 271 K/uL (130-430); RED BLOOD CELL COUNT(AUTO) 2.69 MIL/uL (4.2-6.2); RED CELL DISTRIBUTION WIDTH 18.8 % (9.0-15.0); WHITE BLOOD COUNT (AUTO) 7.4 K/uL (4.8-10.8)
[2022-04-27 08:32] LABS: ALANINE AMINOTRANSFERASE 16 U/L (12-78); ANION GAP 3 (5-15); ASPARTATE AMINOTRANSFERASE 30 U/L (10-37); CALCIUM 7.1 mg/dL (8.4-11.0); CHLORIDE 106 mmol/L (98-107); CREATININE 1.59 mg/dL (0.55-1.30); GLUCOSE 120 mg/dL (70-99); TOTAL BILIRUBIN 0.3 mg/dL (0.0-1.0)
[2022-04-27] MEDS: glipiZIDE XL 5 MG TAB ( GLUCOTROL XL) PO SCH (08:40)
[2022-04-27] MEDS: LACTOBACILLUS RHAMNOSUS GG 1 CAP CAPSULE PO SCH ×2 (08:41→22:13)
[2022-04-27] MEDS: CARVEDILOL 12.5 MG TABLET (COREG) PO SCH ×2 (08:41→22:18)
[2022-04-27] MEDS: APIXABAN 2.5 MG TABLET PO SCH ×2 (08:42→22:17)
[2022-04-27] MEDS: MULTIVITAMINS TAB 1 TABLET PO SCH (08:42)
[2022-04-27] MEDS: FERROUS SULFATE 300 MG/5 ML UDC PO SCH (08:42)
[2022-04-27] MEDS: PANTOPRAZOLE SODIUM 40 MG TAB PO SCH (08:42)
[2022-04-27] MEDS: THIAMINE HCL 100 MG TABLET PO SCH (08:42)
[2022-04-27 08:46] LABS: UREA NITROGEN, BLOOD 15 mg/dL (8-21)
[2022-04-27 11:18] VITALS: BP_SYST 148
[2022-04-27] MEDS: INSULIN REGULAR, HUMAN 100 UNITS/ML, 3 ML VIAL (humuLIN R) SUBCUT PRN (12:49)
[2022-04-27] MEDS: cefTRIAXone 1 GM in D5W 50 ML IV SCH (12:49)
--- NOTE | 2022-04-27 15:33 | NUR ---
PHYSICAL THERAPY CO-SIGN The Physical Therapy Progress Notes documented by Rn Maternal Child have been reviewed. Reviewed/Co-Signed by: Dameon Bradley Documentation Done by:SATINDER TINSLEY Addendum: 04/27/22 at 1533 by Dameon Bradley PT Amended: Links added.
[2022-04-27 16:47] VITALS: BP_SYST 123
[2022-04-27 20:00] VITALS: BP_SYST 143
--- NOTE | 2022-04-27 20:32 | NUR ---
RECEIVED PT LYING IN BED, NO DISTRESS NOTED, DENIES PAIN. AAOX4, O2 SAT 99% ON RA. IV TO RT IJ SITE CDI. JOSE ALFREDO WITH STRAW COLORED DRAINAGE. JOSE ALFREDO SITE WITH ERYTHEMA. F/C DRAINING MARIANO COLOR URINE. ABD WITH MIDLINE BOBY SITE CDI.
[2022-04-27] MEDS: GABAPENTIN 100 MG CAPSULE PO SCH (22:13)
[2022-04-27] MEDS: ATORVASTATIN 20 MG TABLET PO SCH (22:14)
[2022-04-27] MEDS: HYDROcodone/ACETAMIN 5-325 MG TAB (NORCO/ VICODIN) PO PRN (22:27)
[2022-04-28 02:06] VITALS: BP_SYST 132; BP_SYST 138
--- NOTE | 2022-04-28 07:44 | NUR ---
OPENING NOTE received pt alert, verbally responsive. skin warm and dry. no distress. call light in reach. JOSE ALFREDO emptied; large volume clear, yellow fluid. in bed, no s/s pain or discomfort.
[2022-04-28 08:00] VITALS: BP_SYST 165
[2022-04-28] MEDS: FERROUS SULFATE 300 MG/5 ML UDC PO SCH (09:48)
[2022-04-28] MEDS: APIXABAN 2.5 MG TABLET PO SCH ×2 (09:49→20:54)
[2022-04-28] MEDS: MULTIVITAMINS TAB 1 TABLET PO SCH (09:50)
[2022-04-28] MEDS: LACTOBACILLUS RHAMNOSUS GG 1 CAP CAPSULE PO SCH ×2 (09:50→20:51)
[2022-04-28] MEDS: THIAMINE HCL 100 MG TABLET PO SCH (09:51)
[2022-04-28] MEDS: glipiZIDE XL 5 MG TAB ( GLUCOTROL XL) PO SCH (09:51)
[2022-04-28] MEDS: PANTOPRAZOLE SODIUM 40 MG TAB PO SCH (09:52)
[2022-04-28] MEDS: CARVEDILOL 12.5 MG TABLET (COREG) PO SCH ×2 (09:52→20:55)
--- NOTE | 2022-04-28 11:00 | NUR ---
BOBY REMOVED ORDER RECEIVED AND FOLLOWED THROUGH. BOBY REMOVED FROM ABD INCISION. APPEARS APPROXIMATED, HEALED, SCABS PRESENT DISTAL AND PROXIMAL INCISION SITES.
[2022-04-28 11:06] VITALS: BP_SYST 144
--- NOTE | 2022-04-28 13:08 | NUR ---
MD DR CASAREZ ON THE FLOOR, NEW ORDERS RECEIVED
--- NOTE | 2022-04-28 13:40 | NUR ---
BOBY REMOVED from abdominal incision. appears approximated and healed with scabs in place at proximal incision. denies pain. repositioned self. bond in place below bladder. JOSE ALFREDO emptied twice in quick succession
--- NOTE | 2022-04-28 15:26 | NUR ---
MD DARRYL CASAREZ SPOKE WITH JENNY AT EXCHANGE PATIENT COMPLAINING OF NAUSEA
--- NOTE | 2022-04-28 15:26 | NUR ---
ROOM TRANSFER TRANSFERRED PATIENT TO ROOM 102a ALL BELONGINGS PRESENT
--- NOTE | 2022-04-28 16:48 | NUR ---
MD DR JASON BEDSIDE EXAMINING PATIENT
--- NOTE | 2022-04-28 18:07 | NUR ---
SITTING UP IN BED, NO DISTRESS. FAMILY AT BEDSIDE. PT DENIES NAUSEA AT THIS TIME, EATING DINNER. CALL LIGHT IN REACH.
[2022-04-28 18:44] VITALS: BP_SYST 145
--- NOTE | 2022-04-28 19:24 | NUR ---
REPORT GIVEN TO CLEANER INDUSTRIAL RN. PT STABLE. NO DISTRESS.CALL LIGHT IN REACH
--- NOTE | 2022-04-28 19:30 | NUR ---
OPENING NOTE PT LYING IN BED, EYES OPENED. BREATHING EVEN AND NONLABORED. VSS. NO S/S OF ACUTE DISTRESS OR PAIN. BED ALARM ON AND LOWEST POSITION. SAFETY CHECKS MADE. CALL LIGHT IN REACH. CONTINUE TO MONITOR.
[2022-04-28 20:00] VITALS: BP_SYST 103
[2022-04-28] MEDS: GABAPENTIN 100 MG CAPSULE PO SCH (20:51)
[2022-04-28] MEDS: ATORVASTATIN 20 MG TABLET PO SCH (20:52)
[2022-04-29 00:49] VITALS: BP_SYST 101
[2022-04-29 02:58] VITALS: BP_SYST 103
--- NOTE | 2022-04-29 05:00 | NUR ---
REFUSING BLOOD DRAWN PT REFUSED BLOOD DRAW. PT'S SON PERSUADED HIM AND HE ALLOW TO GET BLOOD FROM HIM
--- NOTE | 2022-04-29 07:00 | NUR ---
CALLED DR. LUJAN. PT'S URINE OUT 100ML AND 220 mL FROM JOSE ALFREDO DRAIN. PERFORMED BLADDER SCAN AND 80mL RETAINED. CALLED TO DR. LUJAN @0700. PT'S SON STATED HIS FATHER FELT DROWNING AND FLUID IN HIS LUNG. HE WANTS TO CHECK WHAT IS GOING ON.
--- NOTE | 2022-04-29 07:33 | NUR ---
CLOSING NOTE PT LYING IN BED, EYES OPENED. BREATHING EVEN AND NONLABORED. BED ALARM ON AND LOWEST POSITION. SAFETY CHECKS MADE. CALL LIGHT IN REACH. ENDORSED TO DAY SHIFT NURSE
[2022-04-29 07:54] LABS: BASOPHILS # (AUTO) 0.1 K/uL (0.0-0.2); BASOPHILS % (AUTO) 1.1 % (0.0-2.0); EOSINOPHILS # (AUTO) 0.3 K/uL (0.0-0.4); EOSINOPHILS % (AUTO) 4.2 % (0.0-4.0); HEMOGLOBIN 8.1 g/dL (14.0-18.0); LYMPHOCYTES # (AUTO) 1.1 K/uL (1.0-5.5); LYMPHOCYTES % (AUTO) 13.3 % (20.5-51.5); MEAN CORPUSCULAR HEMOGLOBIN 31 pg (27-31); MEAN CORPUSCULAR HGB CONC 34 % (32-36); MEAN CORPUSCULAR VOLUME 91 fL (79.0-98.0); MONOCYTES # (AUTO) 1.2 K/uL (0.0-1.0); MONOCYTES % (AUTO) 15.3 % (1.7-9.3); NEUTROPHILS # (AUTO) 5.2 K/uL (1.8-7.7); NEUTROPHILS % (AUTO) 66.1 % (40.0-70.0); PLATELET COUNT (AUTO) 264 K/uL (130-430); RED BLOOD CELL COUNT(AUTO) 2.64 MIL/uL (4.2-6.2); RED CELL DISTRIBUTION WIDTH 19.4 % (9.0-15.0); WHITE BLOOD COUNT (AUTO) 7.9 K/uL (4.8-10.8)
[2022-04-29 08:06] LABS: ANION GAP 3 (5-15); CALCIUM 7.3 mg/dL (8.4-11.0); CHLORIDE 105 mmol/L (98-107); CREATININE 1.74 mg/dL (0.55-1.30); GLUCOSE 101 mg/dL (70-99); UREA NITROGEN, BLOOD 16 mg/dL (8-21)
[2022-04-29] MEDS: FERROUS SULFATE 300 MG/5 ML UDC PO SCH (10:56)
[2022-04-29] MEDS: APIXABAN 2.5 MG TABLET PO SCH ×2 (10:58→21:38)
[2022-04-29] MEDS: glipiZIDE XL 5 MG TAB ( GLUCOTROL XL) PO SCH ×2 (10:59→21:36)
[2022-04-29] MEDS: LACTOBACILLUS RHAMNOSUS GG 1 CAP CAPSULE PO SCH ×2 (10:59→21:34)
[2022-04-29] MEDS: MULTIVITAMINS TAB 1 TABLET PO SCH (11:00)
[2022-04-29] MEDS: THIAMINE HCL 100 MG TABLET PO SCH (11:01)
[2022-04-29] MEDS: CARVEDILOL 12.5 MG TABLET (COREG) PO SCH ×2 (11:01→21:34)
[2022-04-29] MEDS: PANTOPRAZOLE SODIUM 40 MG TAB PO SCH (11:02)
[2022-04-29] MEDS ORDERED: FUROSEMIDE 40 MG/4 ML VIAL IVP ONE (11:45)
[2022-04-29 19:00] VITALS: BP_SYST 123
--- NOTE | 2022-04-29 19:15 | NUR ---
change of shift.pt.quiescent affect;calm,resting.pt.presents language status;namibian/marshallese fluent both languages.pt.presents iv access location.rt.inj intact;patent iv lock status.pt.presents bond cath intact;patent.general status stable.respiratory status stable unlabored@room air.02-sat%=94%@roomair.call light/telephone w/in access of the pt.
[2022-04-29 20:00] VITALS: BP_SYST 123
--- NOTE | 2022-04-29 20:00 | NUR ---
pt.assessed.v/s assessed values wnl.no c/o pain,nausea.iv access rt.inj intact bond cath intact;patent.pt.assessed for cleanliness.pt.repositioned.pt.apprised snacks/beverages are available w/in the shift.no requests posited@this hour. call light/telephone placed w/in access of the pt.
--- NOTE | 2022-04-29 20:30 | NUR ---
blood glucose assessed value;89mg/dl.pt.apprised of the blood glucose value pt.presented w snacks.
--- NOTE | 2022-04-29 21:00 | NUR ---
2100p medications administered.pt.capable to ingest the po medications w/out difficulty.no c/o pain,nausea. no requests posited@this hour.call light/telephone placed w/in access of the pt.
[2022-04-29] MEDS: GABAPENTIN 100 MG CAPSULE PO SCH (21:35)
[2022-04-29] MEDS: ATORVASTATIN 20 MG TABLET PO SCH (21:35)
--- NOTE | 2022-04-29 22:00 | NUR ---
pt.assessed.pt.quiescent.per flacc pain mgx pt.absent facial grimaces/body posturing.iv access rt.inj intact. bond cath intact;patent.pt.assessed for cleanliness pt.repositioned.call light/telephone placed w/in access of the pt.
--- NOTE | 2022-04-30 | NUR ---
pt.assessed.v/s assessed values wnl.no c/o pain,nausea.pt.assessed for cleanliness pt.repositioned.no requests posited@ this hour.iv access rt.inj intact,bond cath intact;patent.call light/telephone placed w/in access of the pt.
--- NOTE | 2022-04-30 02:00 | NUR ---
pt.assessed.pt.quiescent.per flacc pain mgx pt.absent facial grimaces/body posturing.iv access rt inj intact bond cath intact.pt.assessed for cleanliness pt.repositioned.call light/telephone placed w/in access of the pt.
[2022-04-30 03:45] VITALS: BP_SYST 119
--- NOTE | 2022-04-30 04:00 | NUR ---
pt.assessed.pt.quiescent.per flacc pain mgx pt.absent facial grimaces/body posturing.iv access rt.inj,bond cath intact; patent.pt.assessed for cleanliness pt.repositioned.call light/telephone place w/in access of the pt.
--- NOTE | 2022-04-30 06:00 | NUR ---
pt.assessed.blood glucose assessed value;75mg/dl.pt.offered snacks.pt.asymptomatic.iv access,bond cath intact pt.assessed for cleanliness pt.repositioned.call light/telephone placed w/in access of the pt.
[2022-04-30 07:39] LABS: ALANINE AMINOTRANSFERASE 8 U/L (12-78); ANION GAP 4 (5-15); ASPARTATE AMINOTRANSFERASE 27 U/L (10-37); CALCIUM 7.4 mg/dL (8.4-11.0); CHLORIDE 105 mmol/L (98-107); CREATININE 1.75 mg/dL (0.55-1.30); GLUCOSE 77 mg/dL (70-99); TOTAL BILIRUBIN 0.3 mg/dL (0.0-1.0); UREA NITROGEN, BLOOD 15 mg/dL (8-21)
[2022-04-30 08:00] VITALS: BP_SYST 105
--- NOTE | 2022-04-30 08:00 | NUR ---
100 ml clear serous fluid removed from marcia drain
[2022-04-30] MEDS: CARVEDILOL 12.5 MG TABLET (COREG) PO SCH ×2 (09:00→22:16)
[2022-04-30] MEDS: FERROUS SULFATE 300 MG/5 ML UDC PO SCH (09:03)
[2022-04-30] MEDS: PANTOPRAZOLE SODIUM 40 MG TAB PO SCH (09:08)
[2022-04-30] MEDS: MULTIVITAMINS TAB 1 TABLET PO SCH (09:08)
[2022-04-30] MEDS: THIAMINE HCL 100 MG TABLET PO SCH (09:09)
[2022-04-30] MEDS: APIXABAN 2.5 MG TABLET PO SCH ×2 (09:09→22:18)
[2022-04-30] MEDS: LACTOBACILLUS RHAMNOSUS GG 1 CAP CAPSULE PO SCH ×2 (09:10→22:16)
--- NOTE | 2022-04-30 10:00 | NUR ---
dressing on lij soiled, changed, patient tolerated well
[2022-04-30 11:20] VITALS: BP_SYST 143
--- NOTE | 2022-04-30 12:00 | NUR ---
reported to dr. belle that patient became hypotensive and dizzy when pt attempted to get patient out of bed, orders obtained for ns @ 60ml/hr maintenance
[2022-04-30 15:24] VITALS: BP_SYST 139
--- NOTE | 2022-04-30 15:41 | NUR ---
PHYSICAL THERAPY CO-SIGN The Physical Therapy Progress Notes documented by Recovery Manager have been reviewed. Reviewed/Co-Signed by: Stas Murdock Documentation Done by:SATINDER TINSLEY Addendum: 04/30/22 at 1542 by Stas Murdock PT Amended: Links added.
--- NOTE | 2022-04-30 16:00 | NUR ---
100ml serous fluid removed from marcia drain
[2022-04-30] MEDS: NACL 0.9% 1,000 ML IV SCH (17:34)
[2022-04-30 19:00] VITALS: BP_SYST 111
[2022-04-30 20:00] VITALS: BP_SYST 121
[2022-04-30] MEDS: ALBUMIN HUMAN 25% 100 ML IV SCH (22:16)
[2022-04-30] MEDS: GABAPENTIN 100 MG CAPSULE PO SCH (22:17)
[2022-04-30] MEDS: ATORVASTATIN 20 MG TABLET PO SCH (22:17)
[2022-05-01] MEDS: ALBUMIN HUMAN 25% 100 ML IV SCH ×2 (01:46→05:40)
[2022-05-01 02:02] VITALS: BP_SYST 116
[2022-05-01 07:35] LABS: ALANINE AMINOTRANSFERASE 15 U/L (12-78); ALBUMIN 1.9 g/dL (3.4-4.8); ANION GAP 6 (5-15); ASPARTATE AMINOTRANSFERASE 23 U/L (10-37); CALCIUM 7.3 mg/dL (8.4-11.0); CHLORIDE 106 mmol/L (98-107); CREATININE 1.66 mg/dL (0.55-1.30); GLUCOSE 109 mg/dL (70-99); PHOSPHORUS 3.3 mg/dL (2.7-4.5); TOTAL BILIRUBIN 0.4 mg/dL (0.0-1.0); UREA NITROGEN, BLOOD 15 mg/dL (8-21)
[2022-05-01 08:00] VITALS: BP_SYST 127
[2022-05-01] MEDS: LACTOBACILLUS RHAMNOSUS GG 1 CAP CAPSULE PO SCH ×2 (08:58→21:18)
[2022-05-01] MEDS: THIAMINE HCL 100 MG TABLET PO SCH (08:59)
[2022-05-01] MEDS: CARVEDILOL 12.5 MG TABLET (COREG) PO SCH ×2 (08:59→21:19)
[2022-05-01] MEDS: glipiZIDE XL 5 MG TAB ( GLUCOTROL XL) PO SCH (08:59)
[2022-05-01] MEDS: FERROUS SULFATE 300 MG/5 ML UDC PO SCH (09:00)
[2022-05-01] MEDS: PANTOPRAZOLE SODIUM 40 MG TAB PO SCH (09:00)
[2022-05-01] MEDS: MULTIVITAMINS TAB 1 TABLET PO SCH (09:00)
--- NOTE | 2022-05-01 09:00 | NUR ---
120 ml serous fluid removed from marcia drain
[2022-05-01 09:02] LABS: EOSINOPHILS # (AUTO) 0.3 K/uL (0.0-0.4); EOSINOPHILS % (AUTO) 5.5 % (0.0-4.0); HEMOGLOBIN 7.1 g/dL (14.0-18.0); LYMPHOCYTES # (AUTO) 0.9 K/uL (1.0-5.5); LYMPHOCYTES % (AUTO) 14.8 % (20.5-51.5); MEAN CORPUSCULAR HEMOGLOBIN 30 pg (27-31); MEAN CORPUSCULAR HGB CONC 33 % (32-36); MEAN CORPUSCULAR VOLUME 91 fL (79.0-98.0); MONOCYTES # (AUTO) 0.9 K/uL (0.0-1.0); MONOCYTES % (AUTO) 15.3 % (1.7-9.3); NEUTROPHILS # (AUTO) 3.7 K/uL (1.8-7.7); PLATELET COUNT (AUTO) 252 K/uL (130-430); RED BLOOD CELL COUNT(AUTO) 2.38 MIL/uL (4.2-6.2); RED CELL DISTRIBUTION WIDTH 21.7 % (9.0-15.0); WHITE BLOOD COUNT (AUTO) 5.8 K/uL (4.8-10.8)
[2022-05-01] MEDS: APIXABAN 2.5 MG TABLET PO SCH ×2 (09:05→21:19)
[2022-05-01 09:44] LABS: BASOPHILS % (AUTO) 0.2 % (0.0-2.0); HEMATOCRIT 21.7 % (36-54); NEUTROPHILS % (AUTO) 64.2 % (40.0-70.0)
--- NOTE | 2022-05-01 10:00 | NUR ---
PATIENT HGB 7.1, DR. LUJAN MADE AWARE, NO NEW ORDERS AT THIS TIME
[2022-05-01] MEDS: NACL 0.9% 1,000 ML IV SCH (10:06)
[2022-05-01 11:23] VITALS: BP_SYST 128
--- NOTE | 2022-05-01 12:00 | NUR ---
patients blood sugar 155, refusing insulin coverage and lunch at this time, education provided on risks of not adhering to plan of care
--- NOTE | 2022-05-01 14:00 | NUR ---
patient c/o sob sao2 94% on ra, patient placed on 2lp o2 via nc
--- NOTE | 2022-05-01 15:07 | NUR ---
PHYSICAL THERAPY CO-SIGN The Physical Therapy Progress Notes documented by Manager Of Broadcast Content have been reviewed. Reviewed/Co-Signed by: Dameon Bradley Documentation Done by:SATINDER TINSLEY Addendum: 05/01/22 at 1507 by Dameon Bradley PT Amended: Links added.
[2022-05-01 15:56] VITALS: BP_SYST 142
[2022-05-01 20:00] VITALS: BP_SYST 139
[2022-05-01] MEDS: GABAPENTIN 100 MG CAPSULE PO SCH (21:18)
[2022-05-01] MEDS: ATORVASTATIN 20 MG TABLET PO SCH (21:18)
[2022-05-02] VITALS: BP_SYST 152
[2022-05-02] MEDS: ONDANSETRON HCL 4 MG/2 ML VIAL IVP PRN (00:36)
[2022-05-02] MEDS: NACL 0.9% 1,000 ML IV SCH (00:36)
[2022-05-02 06:18] LABS: BASOPHILS # (AUTO) 0.1 K/uL (0.0-0.2); BASOPHILS % (AUTO) 1.1 % (0.0-2.0); EOSINOPHILS # (AUTO) 0.3 K/uL (0.0-0.4); EOSINOPHILS % (AUTO) 4.4 % (0.0-4.0); HEMATOCRIT 23.5 % (36-54); HEMOGLOBIN 7.9 g/dL (14.0-18.0); LYMPHOCYTES % (AUTO) 13.1 % (20.5-51.5); MEAN CORPUSCULAR HEMOGLOBIN 31 pg (27-31); MEAN CORPUSCULAR HGB CONC 34 % (32-36); MEAN CORPUSCULAR VOLUME 91 fL (79.0-98.0); MONOCYTES # (AUTO) 0.9 K/uL (0.0-1.0); MONOCYTES % (AUTO) 11.3 % (1.7-9.3); NEUTROPHILS # (AUTO) 5.4 K/uL (1.8-7.7); NEUTROPHILS % (AUTO) 70.1 % (40.0-70.0); PLATELET COUNT (AUTO) 262 K/uL (130-430); RED CELL DISTRIBUTION WIDTH 20.1 % (9.0-15.0); WHITE BLOOD COUNT (AUTO) 7.7 K/uL (4.8-10.8)
[2022-05-02 07:02] LABS: ANION GAP 5 (5-15); CALCIUM 7.5 mg/dL (8.4-11.0); CHLORIDE 103 mmol/L (98-107); CREATININE 1.51 mg/dL (0.55-1.30); GLUCOSE 114 mg/dL (70-99); UREA NITROGEN, BLOOD 12 mg/dL (8-21)
[2022-05-02 08:00] VITALS: BP_SYST 153
[2022-05-02] MEDS: PANTOPRAZOLE SODIUM 40 MG TAB PO SCH (08:35)
[2022-05-02] MEDS: MULTIVITAMINS TAB 1 TABLET PO SCH (08:36)
[2022-05-02] MEDS: LACTOBACILLUS RHAMNOSUS GG 1 CAP CAPSULE PO SCH ×2 (08:36→21:05)
[2022-05-02] MEDS: FERROUS SULFATE 300 MG/5 ML UDC PO SCH (08:36)
[2022-05-02] MEDS: glipiZIDE XL 5 MG TAB ( GLUCOTROL XL) PO SCH (08:36)
[2022-05-02] MEDS: THIAMINE HCL 100 MG TABLET PO SCH (08:36)
[2022-05-02] MEDS: CARVEDILOL 12.5 MG TABLET (COREG) PO SCH ×2 (08:36→21:05)
[2022-05-02] MEDS: APIXABAN 2.5 MG TABLET PO SCH ×2 (08:38→21:15)
[2022-05-02 11:25] VITALS: BP_SYST 133
[2022-05-02] MEDS: ALBUMIN HUMAN 25% 50 ML IV SCH ×3 (12:19→21:04)
--- NOTE | 2022-05-02 13:04 | NUR ---
patient sitting up in bed for lunch, no sob observed, sao2 95% on ra, no distress
[2022-05-02 15:02] VITALS: BP_SYST 131
--- NOTE | 2022-05-02 15:39 | NUR ---
pcc line in rij removed, patient tolerated well, no bleeding noted
--- NOTE | 2022-05-02 15:42 | NUR ---
PHYSICAL THERAPY CO-SIGN The Physical Therapy Progress Notes documented by Pulmonologist Intensivist have been reviewed. Reviewed/Co-Signed by: Stas Murdock Documentation Done by:SATINDER TINSLEY Addendum: 05/02/22 at 1542 by Stas Murdock PT Amended: Links added.
[2022-05-02 20:15] VITALS: BP_SYST 121
[2022-05-02] MEDS: ATORVASTATIN 20 MG TABLET PO SCH (21:05)
[2022-05-02] MEDS: GABAPENTIN 100 MG CAPSULE PO SCH (21:05)
[2022-05-03 00:30] VITALS: BP_SYST 112
--- NOTE | 2022-05-03 00:30 | NUR ---
Dc'd Left EJ IV catheter tip intact, bleeding controlled. Pt tolerated well.
[2022-05-03] MEDS: HYDROcodone/ACETAMIN 5-325 MG TAB (NORCO/ VICODIN) PO PRN (04:55)
[2022-05-03 05:51] LABS: BASOPHILS # (AUTO) 0.1 K/uL (0.0-0.2); BASOPHILS % (AUTO) 0.7 % (0.0-2.0); EOSINOPHILS # (AUTO) 0.5 K/uL (0.0-0.4); EOSINOPHILS % (AUTO) 5.9 % (0.0-4.0); HEMATOCRIT 22.6 % (36-54); HEMOGLOBIN 7.5 g/dL (14.0-18.0); LYMPHOCYTES # (AUTO) 1.1 K/uL (1.0-5.5); MEAN CORPUSCULAR HEMOGLOBIN 30 pg (27-31); MEAN CORPUSCULAR HGB CONC 33 % (32-36); MEAN CORPUSCULAR VOLUME 91 fL (79.0-98.0); MONOCYTES % (AUTO) 13.2 % (1.7-9.3); NEUTROPHILS # (AUTO) 5.1 K/uL (1.8-7.7); NEUTROPHILS % (AUTO) 66.2 % (40.0-70.0); PLATELET COUNT (AUTO) 232 K/uL (130-430); RED BLOOD CELL COUNT(AUTO) 2.47 MIL/uL (4.2-6.2); RED CELL DISTRIBUTION WIDTH 20.8 % (9.0-15.0); WHITE BLOOD COUNT (AUTO) 7.7 K/uL (4.8-10.8)
[2022-05-03 06:19] LABS: ANION GAP 5 (5-15); CALCIUM 7.5 mg/dL (8.4-11.0); CHLORIDE 107 mmol/L (98-107); CREATININE 1.59 mg/dL (0.55-1.30); GLUCOSE 81 mg/dL (70-99); UREA NITROGEN, BLOOD 14 mg/dL (8-21)
--- NOTE | 2022-05-03 06:33 | NUR ---
Closing notes Pt asleep, easily awakens, no s/s distress noted. BS checked 109. IV L. hand clear and patent. JOSE AFLREDO drain intact. Couch catheter draining to gravity. Safety maintained. To endorse to AM nurse.
[2022-05-03 08:40] VITALS: BP_SYST 114
[2022-05-03] MEDS: PANTOPRAZOLE SODIUM 40 MG TAB PO SCH (10:17)
[2022-05-03] MEDS: glipiZIDE XL 5 MG TAB ( GLUCOTROL XL) PO SCH (10:17)
[2022-05-03] MEDS: MULTIVITAMINS TAB 1 TABLET PO SCH (10:17)
[2022-05-03] MEDS: FERROUS SULFATE 300 MG/5 ML UDC PO SCH (10:17)
[2022-05-03] MEDS: THIAMINE HCL 100 MG TABLET PO SCH (10:17)
[2022-05-03] MEDS: LACTOBACILLUS RHAMNOSUS GG 1 CAP CAPSULE PO SCH ×2 (10:17→22:45)
[2022-05-03] MEDS: CARVEDILOL 12.5 MG TABLET (COREG) PO SCH ×2 (10:19→22:41)
[2022-05-03] MEDS: APIXABAN 2.5 MG TABLET PO SCH ×2 (10:22→22:43)
[2022-05-03 11:56] VITALS: BP_SYST 104
--- NOTE | 2022-05-03 15:21 | NUR ---
PHYSICAL THERAPY CO-SIGN The Physical Therapy Progress Notes documented by Perfect Binder Feeder Offbearer have been reviewed. Reviewed/Co-Signed by: Stas Murdock Documentation Done by:SATINDER TINSLEY Addendum: 05/03/22 at 1521 by Stas Murdock PT Amended: Links added.
[2022-05-03 16:36] VITALS: BP_SYST 146
[2022-05-03 20:20] VITALS: BP_SYST 159
[2022-05-03] MEDS: GABAPENTIN 100 MG CAPSULE PO SCH (22:46)
[2022-05-03] MEDS: ATORVASTATIN 20 MG TABLET PO SCH (22:46)
[2022-05-04 01:24] VITALS: BP_SYST 136
[2022-05-04 08:00] VITALS: BP_SYST 125
--- NOTE | 2022-05-04 08:05 | NUR ---
OPENING NOTES: PT SITTING UP IN BED EATING BREAKFAST. NO S/S OF DISTRESS OR PAIN REPORTED. BREATHING IS EVEN AND UNLABORED ON 2L NC 97%. ALL NEEDS MET AT THIS TIME, SAFETY CHECKS MADE AND CALL LIGHT WITHIN REACH.
[2022-05-04] MEDS: glipiZIDE XL 5 MG TAB ( GLUCOTROL XL) PO SCH (09:10)
[2022-05-04] MEDS: THIAMINE HCL 100 MG TABLET PO SCH (09:10)
[2022-05-04] MEDS: FERROUS SULFATE 300 MG/5 ML UDC PO SCH (09:10)
[2022-05-04] MEDS: MULTIVITAMINS TAB 1 TABLET PO SCH (09:11)
[2022-05-04] MEDS: APIXABAN 2.5 MG TABLET PO SCH ×2 (09:11→22:29)
[2022-05-04] MEDS: LACTOBACILLUS RHAMNOSUS GG 1 CAP CAPSULE PO SCH ×2 (09:11→22:32)
[2022-05-04] MEDS: CARVEDILOL 12.5 MG TABLET (COREG) PO SCH ×2 (09:12→22:31)
[2022-05-04] MEDS: PANTOPRAZOLE SODIUM 40 MG TAB PO SCH (09:12)
--- NOTE | 2022-05-04 11:37 | NUR ---
ROUNDS: PT COMPLAINED OF NAUSEA. NOTIFIED MY RN AND GAVE HER THE ZOFRAN IV PUSH THAT THE PT HAS PRN. SON IS AT BEDSIDE. UPDATED HIM AND THE PT OF THE PLAN OF CARE AND HE VERBALIZED UNDERSTANDING.
[2022-05-04 11:41] VITALS: BP_SYST 103
--- NOTE | 2022-05-04 13:43 | NUR ---
Wound Evaluation: Wound Consult ordered for Low Damir Score. Patient evaluated for a low Damir score of 15. Patient was awake, alert, oriented and received in a Avis Bed. Patient needs cues to be turn in bed. Skin assessment: 1. Buttocks: IAD with blanchable redness. Right buttock area has several linear dry excoriations with black scab, probably from scratching. Recommend: Cleanse involved areas with mild soap and water. Gently pat dry. Apply Hydraguard barrier cream to involved areas. Cover site with sacral foam dressing for protection. Perform site care daily, and as needed for dressing soiling or dislodgment. 2. Left Heel: Blanchable redness. 3. Right Heel: Blanchable redness. Recommend: Cover heels with foam dressings for protection elevate, offload and float bilateral heels with 1 pillow lengthwise under each extremity at all times. Also recommend: Encourage and assist patient as needed with repositioning side to side only every 2 hours with pillow support. Elevate, off-load and float bilateral heels with 1 pillow lengthwise and each extremity at all times. Offload pressure areas with pillows for pressure re-distribution. Perform skin care and monitor skin integrity Q shift. Use Hydraguard barrier cream on moisture susceptible areas QID and PRN for soiling. Place patient on a low air-loss mattress.
--- NOTE | 2022-05-04 15:28 | NUR ---
PHYSICAL THERAPY CO-SIGN The Physical Therapy Progress Notes documented by Roll Handler have been reviewed. Reviewed/Co-Signed by: Dameon Brdaley Documentation Done by:SATINDER TINSLEY Addendum: 05/04/22 at 1529 by Dameon Bradley PT Amended: Links added.
[2022-05-04 16:39] VITALS: BP_SYST 152
--- NOTE | 2022-05-04 19:09 | NUR ---
CLOSING NOTES: PT IN BED EATING DINNER. FAMILY AT BEDSIDE. NO S/S OF DISTRESS OR PAIN REPORTED. BREATHING IS EVEN AND UNLABORED ON RA. ALL NEEDS MET AT THIS TIME, SAFETY CHECKS MADE AND CALL LIGHT WITHIN REACH.
[2022-05-04 20:18] VITALS: BP_SYST 128
[2022-05-04] MEDS: GABAPENTIN 100 MG CAPSULE PO SCH (22:31)
[2022-05-04] MEDS: ATORVASTATIN 20 MG TABLET PO SCH (22:32)
[2022-05-05 00:38] VITALS: BP_SYST 119
[2022-05-05 07:51] VITALS: BP_SYST 101
--- NOTE | 2022-05-05 07:54 | NUR ---
Pt AM Blood glucose was 59 and I gave two cups of OJ. Reported the result to dayshift nurse
--- NOTE | 2022-05-05 08:00 | NUR ---
BS AT THIS TIME IS 99
--- NOTE | 2022-05-05 08:00 | NUR ---
START OF SHIFT Pt sitting up in bed eating his breakfast. Left lower quadrant JOSE ALFREDO drain intact and draining well. Couch catheter intact and draining. IV in right hand intact and patent - saline locked at this time. No needs noted at this time. Call light within reach.
[2022-05-05] MEDS: CARVEDILOL 12.5 MG TABLET (COREG) PO SCH ×2 (08:04→21:00)
[2022-05-05] MEDS: LACTOBACILLUS RHAMNOSUS GG 1 CAP CAPSULE PO SCH ×2 (08:26→22:38)
[2022-05-05] MEDS: glipiZIDE XL 5 MG TAB ( GLUCOTROL XL) PO SCH (08:27)
[2022-05-05] MEDS: THIAMINE HCL 100 MG TABLET PO SCH (08:27)
[2022-05-05] MEDS: MULTIVITAMINS TAB 1 TABLET PO SCH (08:28)
[2022-05-05] MEDS: PANTOPRAZOLE SODIUM 40 MG TAB PO SCH (08:28)
[2022-05-05] MEDS: FERROUS SULFATE 300 MG/5 ML UDC PO SCH (08:29)
[2022-05-05] MEDS: APIXABAN 2.5 MG TABLET PO SCH ×2 (08:30→22:40)
[2022-05-05 12:09] VITALS: BP_SYST 119
--- NOTE | 2022-05-05 15:57 | NUR ---
Note Pt was assisted in turning side to side throughout the shift - lumbar dressing CDI all shift. Heels bilaterally intact - not red. Pt has his socks on.
[2022-05-05 16:17] VITALS: BP_SYST 142
--- NOTE | 2022-05-05 17:00 | NUR ---
[facility]/HCP MITZY MS DELGADILLO WAS CALLED, RE: DME -TO CHECK WHETHER FFW AND BSC WERE ALREADY HOME DELIVERED. PER MITZY OLIVEROS, FOR SURE BSC WAS NOT DELIVERED YET FOR SHE SUBMITTED IT FOR REVIEW. MOST LIKELY, FFW WAS ALREADY DELIVERED. WILL FOLLOW UP WITH HER AGAIN TOMORROW
--- NOTE | 2022-05-05 18:00 | NUR ---
End of shift Pt encouraged to eat some of the food from his dinner tray and drink for apple juice. Pt's son at bedside visiting at bedside. Pt's IV in right hand intact and patent. No SOB/resp distress or chest pain discomfort noted at this time. Left lower quadrant JOSE ALFREDO drain intact and draining well (serosanguineous). Couch catheter intact and draining well. Call light within reach. No needs noted at this time.
[2022-05-05 19:39] VITALS: BP_SYST 117
[2022-05-05] MEDS: GABAPENTIN 100 MG CAPSULE PO SCH (22:39)
[2022-05-05] MEDS: ATORVASTATIN 20 MG TABLET PO SCH (22:39)
[2022-05-06] MEDS ORDERED: D5W 1,000 ML IV PRN (00:15)
[2022-05-06] MEDS ORDERED: GLUCOSE (DEXTROSE) ORAL GEL -Adults PO PRN (00:15)
[2022-05-06] MEDS ORDERED: DEXTROSE 50% JECT 50 ML DISP.SYRIN IVP PRN (00:15)
[2022-05-06 00:39] VITALS: BP_SYST 137
[2022-05-06 07:23] LABS: ALANINE AMINOTRANSFERASE 15 U/L (12-78); ALBUMIN 1.7 g/dL (3.4-4.8); ANION GAP 4 (5-15); ASPARTATE AMINOTRANSFERASE 26 U/L (10-37); CALCIUM 7.4 mg/dL (8.4-11.0); CHLORIDE 103 mmol/L (98-107); CREATININE 1.71 mg/dL (0.55-1.30); GLUCOSE 94 mg/dL (70-99); TOTAL BILIRUBIN 0.5 mg/dL (0.0-1.0); UREA NITROGEN, BLOOD 20 mg/dL (8-21)
[2022-05-06 07:24] LABS: BASOPHILS # (AUTO) 0.1 K/uL (0.0-0.2); BASOPHILS % (AUTO) 0.3 % (0.0-2.0); EOSINOPHILS # (AUTO) 0.2 K/uL (0.0-0.4); EOSINOPHILS % (AUTO) 1.3 % (0.0-4.0); HEMATOCRIT 27.6 % (36-54); HEMOGLOBIN 8.9 g/dL (14.0-18.0); LYMPHOCYTES # (AUTO) 1.4 K/uL (1.0-5.5); LYMPHOCYTES % (AUTO) 6.9 % (20.5-51.5); MEAN CORPUSCULAR HEMOGLOBIN 29 pg (27-31); MEAN CORPUSCULAR HGB CONC 32 % (32-36); MEAN CORPUSCULAR VOLUME 91 fL (79.0-98.0); MONOCYTES # (AUTO) 1.8 K/uL (0.0-1.0); MONOCYTES % (AUTO) 8.9 % (1.7-9.3); NEUTROPHILS # (AUTO) 16.3 K/uL (1.8-7.7); NEUTROPHILS % (AUTO) 82.6 % (40.0-70.0); PLATELET COUNT (AUTO) 245 K/uL (130-430); RED BLOOD CELL COUNT(AUTO) 3.04 MIL/uL (4.2-6.2); RED CELL DISTRIBUTION WIDTH 19.5 % (9.0-15.0); WHITE BLOOD COUNT (AUTO) 19.7 K/uL (4.8-10.8)
[2022-05-06] MEDS ORDERED: PIPERACILLIN/TAZO 3.375/DEX-IS 50 ML IV ONE (09:00)
[2022-05-06] MEDS: MULTIVITAMINS TAB 1 TABLET PO SCH (10:05)
[2022-05-06] MEDS: LACTOBACILLUS RHAMNOSUS GG 1 CAP CAPSULE PO SCH ×2 (10:05→23:35)
[2022-05-06] MEDS: FERROUS SULFATE 300 MG/5 ML UDC PO SCH (10:05)
[2022-05-06] MEDS: PANTOPRAZOLE SODIUM 40 MG TAB PO SCH (10:05)
[2022-05-06] MEDS: glipiZIDE XL 5 MG TAB ( GLUCOTROL XL) PO SCH (10:06)
[2022-05-06] MEDS: THIAMINE HCL 100 MG TABLET PO SCH (10:06)
[2022-05-06] MEDS: APIXABAN 2.5 MG TABLET PO SCH ×2 (10:07→23:39)
[2022-05-06] MEDS: CARVEDILOL 12.5 MG TABLET (COREG) PO SCH ×2 (10:10→21:00)
[2022-05-06 11:31] VITALS: BP_SYST 121
[2022-05-06] MEDS ORDERED: PIPERACILLIN/TAZO 3.375/DEX-IS 50 ML IV SCH (12:00)
[2022-05-06] MEDS: INSULIN REGULAR, HUMAN 100 UNITS/ML, 3 ML VIAL (humuLIN R) SUBCUT PRN (12:25)
[2022-05-06] MEDS: cefTRIAXone 1 GM in D5W 50 ML IV SCH (12:29)
--- NOTE | 2022-05-06 12:54 | NUR ---
Nutrition F/U RD reviewed pts current EMR including diet hx, physician notes, nursing notes, pertinent labs/meds/procedures, care trends and care activity. Subjective Information RD rounded to pt room and he was sleeping. RD rounded again and pt was able to be awakened. He attested to feeling hungry only sometimes. RD witnessed tray table with lunch untouched. Pt denies any GI symptoms at this time and his constipation has resolved. Pt not interested in trying Glucerna ONS. Per EMR review: abd soft, non-distended w/ active bowel sounds; Damir: 17, BP 110/54 L, no edema 05/06, BG levels are trending WNL: 91/94. Current Diet Order/Nutrition Support Consistent CHO, mechanical soft x 11 days % PO intake Poor avg of 35% 9 meals Last BM 05/05 x 1 Estimated Energy Expenditure (kcals/day) 6436-9698 kcal (25-30 kcal/kg CBW d/t GERIAT) Estimated Protein Required (g/day) 53-86g (0.8-1.3 g/kg CBW d/t JORGE and abd incision) Estimated Fluid Required (l/day) 1.6-1.9 (1mL/kcal maintenance) Problem/Etiology/Signs/Symptoms * Altered nutrition-related labs r/t kidney dysfunction AEB elevated BUN, Cre (Improving) Expected Outcomes/Goals PO intake provides >85% estimated nutrient needs, nutrition-related labs trending WNL, improvements in skin integrity, BM q1-3 days Dietitian Recommendations * Continue consistent CHO diet * Consider obtaining Hgba1c value * Consider appetite stimulant Follow up *Moderate risk: see pt in 3-5 days STUART, MPH, RD
--- NOTE | 2022-05-06 12:55 | NUR ---
Dietitian Recommendations * Continue consistent CHO diet * Consider obtaining Hgba1c value * Consider appetite stimulant GS, MPH, RD Please refer to Nutrition F/U for further details. Thanks!
[2022-05-06] MEDS: metroNIDAZOLE 250 mg/NS 50 ML IV SCH ×2 (14:18→23:37)
[2022-05-06 15:25] VITALS: BP_SYST 92
[2022-05-06 20:15] VITALS: BP_SYST 99
[2022-05-06] MEDS: GABAPENTIN 100 MG CAPSULE PO SCH (23:35)
[2022-05-06] MEDS: ATORVASTATIN 20 MG TABLET PO SCH (23:36)
[2022-05-07 00:05] VITALS: BP_SYST 104
[2022-05-07] MEDS: metroNIDAZOLE 250 mg/NS 50 ML IV SCH ×3 (06:29→23:33)
[2022-05-07 07:01] LABS: BASOPHILS # (AUTO) 0.1 K/uL (0.0-0.2); BASOPHILS % (AUTO) 0.5 % (0.0-2.0); EOSINOPHILS # (AUTO) 0.3 K/uL (0.0-0.4); EOSINOPHILS % (AUTO) 2.1 % (0.0-4.0); HEMATOCRIT 23.5 % (36-54); HEMOGLOBIN 7.7 g/dL (14.0-18.0); LYMPHOCYTES # (AUTO) 1.3 K/uL (1.0-5.5); LYMPHOCYTES % (AUTO) 9.9 % (20.5-51.5); MEAN CORPUSCULAR HEMOGLOBIN 30 pg (27-31); MEAN CORPUSCULAR HGB CONC 33 % (32-36); MEAN CORPUSCULAR VOLUME 90 fL (79.0-98.0); MONOCYTES # (AUTO) 1.3 K/uL (0.0-1.0); MONOCYTES % (AUTO) 10.1 % (1.7-9.3); NEUTROPHILS % (AUTO) 77.4 % (40.0-70.0); PLATELET COUNT (AUTO) 205 K/uL (130-430); RED BLOOD CELL COUNT(AUTO) 2.61 MIL/uL (4.2-6.2); RED CELL DISTRIBUTION WIDTH 18.6 % (9.0-15.0); WHITE BLOOD COUNT (AUTO) 12.9 K/uL (4.8-10.8)
[2022-05-07 07:47] LABS: ALANINE AMINOTRANSFERASE 14 U/L (12-78); ALBUMIN 1.3 g/dL (3.4-4.8); ANION GAP 5 (5-15); ASPARTATE AMINOTRANSFERASE 28 U/L (10-37); CALCIUM 7.2 mg/dL (8.4-11.0); CHLORIDE 105 mmol/L (98-107); CREATININE 1.72 mg/dL (0.55-1.30); GLUCOSE 50 mg/dL (70-99); TOTAL BILIRUBIN 0.4 mg/dL (0.0-1.0); UREA NITROGEN, BLOOD 22 mg/dL (8-21)
--- NOTE | 2022-05-07 07:59 | NUR ---
HIGH ALERT NOTE: Called on [phone] identified within the medical roster to verify physician authenticity.
[2022-05-07] MEDS ORDERED: D5/0.45 NS 1,000 ML IV SCH (08:00)
[2022-05-07] MEDS ORDERED: DEXTROSE 50% JECT 50 ML DISP.SYRIN IVP ONE (08:00)
--- NOTE | 2022-05-07 08:18 | NUR ---
Perez Velazquez litigation legal secretary aware of repeated low BS during AM glucose checks and knows pt is alert, and he was told that the pt has to receive orange juice in the morning for consecutive daily low BS.
[2022-05-07] MEDS: FERROUS SULFATE 300 MG/5 ML UDC PO SCH (08:22)
[2022-05-07] MEDS: LACTOBACILLUS RHAMNOSUS GG 1 CAP CAPSULE PO SCH ×2 (08:22→21:37)
[2022-05-07] MEDS: PANTOPRAZOLE SODIUM 40 MG TAB PO SCH (08:23)
[2022-05-07] MEDS: CARVEDILOL 12.5 MG TABLET (COREG) PO SCH ×2 (08:24→21:37)
[2022-05-07] MEDS: MULTIVITAMINS TAB 1 TABLET PO SCH (08:25)
[2022-05-07] MEDS: THIAMINE HCL 100 MG TABLET PO SCH (08:25)
[2022-05-07] MEDS: APIXABAN 2.5 MG TABLET PO SCH ×2 (08:40→21:34)
[2022-05-07 11:37] VITALS: BP_SYST 124
[2022-05-07] MEDS: INSULIN REGULAR, HUMAN 100 UNITS/ML, 3 ML VIAL (humuLIN R) SUBCUT PRN (12:36)
[2022-05-07] MEDS: cefTRIAXone 1 GM in D5W 50 ML IV SCH (12:38)
--- NOTE | 2022-05-07 15:46 | NUR ---
PHYSICAL THERAPY CO-SIGN The Physical Therapy Progress Notes documented by Veneer Sheet Repairer have been reviewed. Reviewed/Co-Signed by: Stas Murdock Documentation Done by:SATINDER TINSLEY Addendum: 05/07/22 at 1546 by Stas Murdock PT Amended: Links added.
[2022-05-07 16:56] VITALS: BP_SYST 128
--- NOTE | 2022-05-07 19:30 | NUR ---
FAMILY SPOKE WITH PATIENTS SON IN THE ROOM. SON UPSET THAT PATIENT IS STILL HERE AND HE HAS NOT SPOKEN WITH ANY DOCTORS. WENT OVER BASIC INFORMATION WITH SON AND INFORMED THAT THERE ARE PENDING BLOOD CULTURES, AND UA FOR PATIENT, AND WBC IS ELEVATED. I ASKED SON FOR HIS PHONE NUMBER SO THAT I COULD HAVE MD'S CALL HIM TOMORROW WHEN THEY COME IN HE STATED THAT HE WAS GOING TO WALK HIS DAUGHTER OUT TO THE PARKING LOT AND RETURN TO GIVE ME HIS PHONE NUMBER. I WAITED FOR 30 MINUTES AND HE NEVER RETURNED. ENDORSED TO NIGHT RN TO GET PHONE NUMBER IF HE RETURNS.
[2022-05-07 20:30] VITALS: BP_SYST 120
[2022-05-07] MEDS: ATORVASTATIN 20 MG TABLET PO SCH (21:36)
[2022-05-07] MEDS: GABAPENTIN 100 MG CAPSULE PO SCH (21:37)
[2022-05-07] MEDS: ALBUMIN HUMAN 25% 100 ML IV SCH (21:40)
[2022-05-08 00:13] VITALS: BP_SYST 118
[2022-05-08] MEDS: ALBUMIN HUMAN 25% 100 ML IV SCH (01:12)
[2022-05-08] MEDS: metroNIDAZOLE 250 mg/NS 50 ML IV SCH ×3 (07:18→21:32)
[2022-05-08 07:31] LABS: ALANINE AMINOTRANSFERASE 14 U/L (12-78); ALBUMIN 1.9 g/dL (3.4-4.8); ANION GAP 7 (5-15); ASPARTATE AMINOTRANSFERASE 26 U/L (10-37); CALCIUM 7.3 mg/dL (8.4-11.0); CHLORIDE 104 mmol/L (98-107); CREATININE 1.64 mg/dL (0.55-1.30); GLUCOSE 71 mg/dL (70-99); PHOSPHORUS 3.4 mg/dL (2.7-4.5); TOTAL BILIRUBIN 0.3 mg/dL (0.0-1.0); UREA NITROGEN, BLOOD 24 mg/dL (8-21)
[2022-05-08 08:00] VITALS: BP_SYST 105
[2022-05-08 08:03] LABS: BASOPHILS # (AUTO) 0.1 K/uL (0.0-0.2); EOSINOPHILS # (AUTO) 0.3 K/uL (0.0-0.4); EOSINOPHILS % (AUTO) 4.4 % (0.0-4.0); HEMOGLOBIN 7.3 g/dL (14.0-18.0); LYMPHOCYTES # (AUTO) 1.1 K/uL (1.0-5.5); LYMPHOCYTES % (AUTO) 14.5 % (20.5-51.5); MEAN CORPUSCULAR HEMOGLOBIN 29 pg (27-31); MEAN CORPUSCULAR HGB CONC 33 % (32-36); MEAN CORPUSCULAR VOLUME 89 fL (79.0-98.0); MONOCYTES # (AUTO) 1.1 K/uL (0.0-1.0); MONOCYTES % (AUTO) 13.5 % (1.7-9.3); NEUTROPHILS # (AUTO) 5.3 K/uL (1.8-7.7); NEUTROPHILS % (AUTO) 66.6 % (40.0-70.0); PLATELET COUNT (AUTO) 197 K/uL (130-430); RED BLOOD CELL COUNT(AUTO) 2.47 MIL/uL (4.2-6.2); RED CELL DISTRIBUTION WIDTH 19.3 % (9.0-15.0); WHITE BLOOD COUNT (AUTO) 7.9 K/uL (4.8-10.8)
--- NOTE | 2022-05-08 09:46 | NUR ---
PHONE NUMBER CALLED PHONE NUMBER IN THE COMPUTER FOR FAMILY. PERSON WHO ANSWERED STATED THAT IT IS THE INCORRECT NUMBER AND THEY DID NOT RECOGNIZE THE NAME OF WHOM I WAS TRYING TO REACH. ENDORSED TO DAY RN THAT WE ARE ATTEMPTING TO GET NEW NUMBER FOR THE PATIENT
[2022-05-08] MEDS: PANTOPRAZOLE SODIUM 40 MG TAB PO SCH (10:34)
[2022-05-08] MEDS: THIAMINE HCL 100 MG TABLET PO SCH (10:34)
[2022-05-08] MEDS: MULTIVITAMINS TAB 1 TABLET PO SCH (10:34)
[2022-05-08] MEDS: LACTOBACILLUS RHAMNOSUS GG 1 CAP CAPSULE PO SCH ×2 (10:34→21:27)
[2022-05-08] MEDS: FERROUS SULFATE 300 MG/5 ML UDC PO SCH (10:35)
[2022-05-08] MEDS: CARVEDILOL 12.5 MG TABLET (COREG) PO SCH ×2 (10:35→21:27)
[2022-05-08] MEDS: APIXABAN 2.5 MG TABLET PO SCH ×2 (10:36→21:30)
[2022-05-08 11:37] VITALS: BP_SYST 121
[2022-05-08] MEDS: INSULIN REGULAR, HUMAN 100 UNITS/ML, 3 ML VIAL (humuLIN R) SUBCUT PRN (12:00)
[2022-05-08] MEDS: cefTRIAXone 1 GM in D5W 50 ML IV SCH (12:03)
--- NOTE | 2022-05-08 14:42 | NUR ---
PHYSICAL THERAPY CO-SIGN The Physical Therapy Progress Notes documented by Nursing Instructor have been reviewed. Reviewed/Co-Signed by: Dameon Bradley Documentation Done by:SATINDER TINSLEY Addendum: 05/08/22 at 1443 by Dameon Bradley PT Amended: Links added.
[2022-05-08 17:21] VITALS: BP_SYST 140
--- NOTE | 2022-05-08 18:30 | NUR ---
PATIENT SON AT BEDSIDE REQUESTING FOR INFORMATION ON HIS FATHER BEFORE HIS DISCHARGE. DR BUCIO CONTACTED ANA HOLMAN TO SPEAK WITH SON. PATIENT HAD AN UNEVENTFUL, TOLERATED MEDS WELL. PT HAS POOR APPETITE , NEEDS ENCOURAGEMENT.
[2022-05-08 20:00] VITALS: BP_SYST 156
[2022-05-08] MEDS: GABAPENTIN 100 MG CAPSULE PO SCH (21:27)
[2022-05-08] MEDS: ATORVASTATIN 20 MG TABLET PO SCH (21:27)
[2022-05-09 02:07] VITALS: BP_SYST 130
[2022-05-09] MEDS: metroNIDAZOLE 250 mg/NS 50 ML IV SCH (06:29)
--- NOTE | 2022-05-09 07:42 | NUR ---
ASSUMED CARE, RECEIVED PT RESTING QUIETLY IN BED WITH BLOOD TRANSFUSION IN PROCESS INFUSING AT 110CC/HR. PT IN NO APPARENT DISTRESS. WILL CONTINUE TO MONITOR CLOSELY.
[2022-05-09] MEDS: LACTOBACILLUS RHAMNOSUS GG 1 CAP CAPSULE PO SCH ×2 (10:08→22:19)
[2022-05-09] MEDS: FERROUS SULFATE 300 MG/5 ML UDC PO SCH (10:08)
[2022-05-09] MEDS: CARVEDILOL 12.5 MG TABLET (COREG) PO SCH ×2 (10:09→22:21)
[2022-05-09] MEDS: MULTIVITAMINS TAB 1 TABLET PO SCH (10:10)
[2022-05-09] MEDS: PANTOPRAZOLE SODIUM 40 MG TAB PO SCH (10:10)
[2022-05-09] MEDS: APIXABAN 2.5 MG TABLET PO SCH ×2 (10:11→22:20)
[2022-05-09] MEDS: THIAMINE HCL 100 MG TABLET PO SCH (10:11)
[2022-05-09 10:14] LABS: BASOPHILS # (AUTO) 0.1 K/uL (0.0-0.2); BASOPHILS % (AUTO) 1.2 % (0.0-2.0); EOSINOPHILS # (AUTO) 0.3 K/uL (0.0-0.4); EOSINOPHILS % (AUTO) 3.9 % (0.0-4.0); HEMATOCRIT 31.1 % (36-54); HEMOGLOBIN 10.4 g/dL (14.0-18.0); LYMPHOCYTES # (AUTO) 1.1 K/uL (1.0-5.5); LYMPHOCYTES % (AUTO) 14.7 % (20.5-51.5); MEAN CORPUSCULAR HEMOGLOBIN 30 pg (27-31); MEAN CORPUSCULAR HGB CONC 33 % (32-36); MEAN CORPUSCULAR VOLUME 90 fL (79.0-98.0); MONOCYTES % (AUTO) 13.3 % (1.7-9.3); NEUTROPHILS % (AUTO) 66.9 % (40.0-70.0); PLATELET COUNT (AUTO) 181 K/uL (130-430); RED BLOOD CELL COUNT(AUTO) 3.48 MIL/uL (4.2-6.2); RED CELL DISTRIBUTION WIDTH 17.3 % (9.0-15.0); WHITE BLOOD COUNT (AUTO) 7.5 K/uL (4.8-10.8)
[2022-05-09 10:38] LABS: ALANINE AMINOTRANSFERASE 17 U/L (12-78); ALBUMIN 1.8 g/dL (3.4-4.8); ANION GAP 4 (5-15); ASPARTATE AMINOTRANSFERASE 31 U/L (10-37); CALCIUM 7.4 mg/dL (8.4-11.0); CHLORIDE 104 mmol/L (98-107); CREATININE 1.48 mg/dL (0.55-1.30); GLUCOSE 146 mg/dL (70-99); TOTAL BILIRUBIN 0.3 mg/dL (0.0-1.0); UREA NITROGEN, BLOOD 19 mg/dL (8-21)
[2022-05-09 12:26] VITALS: BP_SYST 138
[2022-05-09] MEDS: ERTAPENEM SODIUM 0.5 GM in NS 50 ML IV SCH (14:44)
[2022-05-09 15:09] VITALS: BP_SYST 140
--- NOTE | 2022-05-09 16:15 | NUR ---
PHYSICAL THERAPY CO-SIGN The Physical Therapy Progress Notes documented by Pipeline Dispatch Operator have been reviewed. Reviewed/Co-Signed by: Stas Murdock Documentation Done by:SATINDER TINSLEY Addendum: 05/09/22 at 1615 by Stas Murdock PT Amended: Links added.
[2022-05-09] MEDS: ATORVASTATIN 20 MG TABLET PO SCH (22:20)
[2022-05-09] MEDS: GABAPENTIN 100 MG CAPSULE PO SCH (22:20)
[2022-05-09 23:26] VITALS: BP_SYST 141
[2022-05-10 00:06] VITALS: BP_SYST 135
--- NOTE | 2022-05-10 02:03 | NUR ---
PT VITALS ARE STABLE , SCHEDULED MEDICATION ADMINISTERED. NO SYMPTOMS OR SIGNS OF DISTRESS, NO COMPLAIN OF PAIN PATIENT AND FAMILY EDUCATION PROVIDED. PT SLEEPS COMFORTABLE IN HIS BED, DISCHARGE ORDER IN PLACED
[2022-05-10 04:38] VITALS: BP_SYST 132
[2022-05-10 09:02] VITALS: BP_SYST 152
[2022-05-10] MEDS: FERROUS SULFATE 300 MG/5 ML UDC PO SCH (09:07)
[2022-05-10] MEDS: THIAMINE HCL 100 MG TABLET PO SCH (09:08)
[2022-05-10] MEDS: PANTOPRAZOLE SODIUM 40 MG TAB PO SCH (09:08)
[2022-05-10] MEDS: LACTOBACILLUS RHAMNOSUS GG 1 CAP CAPSULE PO SCH ×2 (09:08→21:27)
[2022-05-10] MEDS: APIXABAN 2.5 MG TABLET PO SCH ×2 (09:08→21:29)
[2022-05-10] MEDS: CARVEDILOL 12.5 MG TABLET (COREG) PO SCH ×2 (09:09→21:28)
[2022-05-10] MEDS: MULTIVITAMINS TAB 1 TABLET PO SCH (09:09)
[2022-05-10 16:25] VITALS: BP_SYST 154
[2022-05-10] MEDS: ERTAPENEM SODIUM 0.5 GM in NS 50 ML IV SCH (17:54)
[2022-05-10] MEDS: ATORVASTATIN 20 MG TABLET PO SCH (21:27)
[2022-05-10] MEDS: GABAPENTIN 100 MG CAPSULE PO SCH (21:30)
[2022-05-10 23:41] VITALS: BP_SYST 151
--- NOTE | 2022-05-10 23:56 | NUR ---
NO CHANGE IN PT CONDITION . BS 120, NO INSULIN COVERAGE NEEDED. SLEEPS COMFORTABLE IN HIS BED. COMFORT MEASURES ARE PROVIDED. BED IS LOW POSITION AND CALL WITHIN REACH
[2022-05-11] VITALS (7 sets, daily range): BP systolic 135–166
[2022-05-11 06:52] LABS: BASOPHILS # (AUTO) 0.1 K/uL (0.0-0.2); BASOPHILS % (AUTO) 0.9 % (0.0-2.0); EOSINOPHILS # (AUTO) 0.4 K/uL (0.0-0.4); EOSINOPHILS % (AUTO) 4.8 % (0.0-4.0); HEMATOCRIT 30.8 % (36-54); HEMOGLOBIN 10.3 g/dL (14.0-18.0); LYMPHOCYTES # (AUTO) 1.9 K/uL (1.0-5.5); LYMPHOCYTES % (AUTO) 21.6 % (20.5-51.5); MEAN CORPUSCULAR HEMOGLOBIN 30 pg (27-31); MEAN CORPUSCULAR HGB CONC 33 % (32-36); MEAN CORPUSCULAR VOLUME 89 fL (79.0-98.0); MONOCYTES # (AUTO) 1.1 K/uL (0.0-1.0); MONOCYTES % (AUTO) 12.7 % (1.7-9.3); NEUTROPHILS # (AUTO) 5.2 K/uL (1.8-7.7); PLATELET COUNT (AUTO) 192 K/uL (130-430); RED BLOOD CELL COUNT(AUTO) 3.44 MIL/uL (4.2-6.2); RED CELL DISTRIBUTION WIDTH 17.4 % (9.0-15.0); WHITE BLOOD COUNT (AUTO) 8.7 K/uL (4.8-10.8)
[2022-05-11 07:39] LABS: ALANINE AMINOTRANSFERASE 15 U/L (12-78); ALBUMIN 1.6 g/dL (3.4-4.8); ANION GAP 5 (5-15); ASPARTATE AMINOTRANSFERASE 23 U/L (10-37); CALCIUM 7.6 mg/dL (8.4-11.0); CHLORIDE 106 mmol/L (98-107); CREATININE 1.46 mg/dL (0.55-1.30); GLUCOSE 93 mg/dL (70-99); TOTAL BILIRUBIN 0.4 mg/dL (0.0-1.0); UREA NITROGEN, BLOOD 16 mg/dL (8-21)
[2022-05-11] MEDS: FERROUS SULFATE 300 MG/5 ML UDC PO SCH (10:27)
[2022-05-11] MEDS: PANTOPRAZOLE SODIUM 40 MG TAB PO SCH (10:28)
[2022-05-11] MEDS: MULTIVITAMINS TAB 1 TABLET PO SCH (10:28)
[2022-05-11] MEDS: APIXABAN 2.5 MG TABLET PO SCH ×2 (10:28→20:31)
[2022-05-11] MEDS: CARVEDILOL 12.5 MG TABLET (COREG) PO SCH ×2 (10:28→20:34)
[2022-05-11] MEDS: LACTOBACILLUS RHAMNOSUS GG 1 CAP CAPSULE PO SCH ×2 (10:28→20:30)
[2022-05-11] MEDS: THIAMINE HCL 100 MG TABLET PO SCH (10:28)
[2022-05-11] MEDS: ERTAPENEM SODIUM 0.5 GM in NS 50 ML IV SCH (14:10)
[2022-05-11] MEDS ORDERED: AMLO5TAB4 PO (15:08)
[2022-05-11] MEDS ORDERED: ERTA1VIA3 INJ (15:08)
[2022-05-11] MEDS ORDERED: amLODIPine BESYLATE 5 MG TABLET PO ONE (15:15)
--- NOTE | 2022-05-11 15:40 | NUR ---
PHYSICAL THERAPY CO-SIGN The Physical Therapy Progress Notes documented by Battery Container Tester have been reviewed. Reviewed/Co-Signed by: Stas Murdock Documentation Done by:SATINDER TINSLEY Addendum: 05/11/22 at 1541 by Stas Murdock PT Amended: Links added.
--- NOTE | 2022-05-11 16:10 | NUR ---
Nutrition F/U Global Consumer Sector Vice President reviewed pts current EMR including diet hx, physician notes, nursing notes, pertinent labs/meds/procedures, care trends, and care activity. Admission Dx: Hypotension, Renal Failure PMH: 81 YOM from long term for patient found to be confused and SOB. The patient's O2 sat was 80% on room air. Blood sugar is 83 in the field. Blood pressure was 89/60. Pt found to have JORGE, HTN, anemia, s/p colon resection, AMS PMHx: colon CA, CAD, a fib, DM, HLD I/O: 830mL/800mL (30mL) Pt found to have post-op pneumonia, pneumoperitoneum, GERD, sepsis, hypoalbuminemia, CKD3 Remains on 2L Post-op CT scan on abd: possible hemoperitoneum with no leak but Hb remained stable. Subjective Information: Global Consumer Sector Vice President s/w pt at bedside and he said hes been experiencing nausea whenever he eats too much. Doesnt like to eat a lot of meat because its too heavy on his stomach. Prefers hot/cold cereal, yogurt, and pureed fruits. Pts favorite food to eat at home is avocado and cheese wrapped in a tortilla. Pt spoke Upper Sorbian, but not enough to express his current condition. Bedscale wt: 148#/ 67 kg Current Diet Order/Nutrition Support Consistent CHO, mechanical soft x 16 days Patient/Significant Other Able To Verbalize Education Provided Indicated Pertinent Medications NaCl, Glucose, Zofran, Protonix, Thiamine HCl, MV, Fe, Lipitor, Eliquis Pertinent Labs H/H 10.3L/30.8L (trending up), BUN 16 WNL, Cre 1.46 H (trending down), [05/09]: BG 93 WNL, Alb 1.8L (trending down). Height (Feet) 5 feet Height (Inches) 5.00 inches Weight (Pounds) 145 pounds (stable since 04/22) Weight (Calculated Kilograms) 65.597752 kilograms Patient Weight 65.771 kg Body Mass Index 24.13 kg/m2 %IBW 106 [place]/Adjusted Body Weight 136#/ 62 kg Recent Weight Change Yes - 34# in 3 months per RN screen, 19% weight loss Weight Status Appropriate Gastrointestinal Symptoms Constipation Last BM 05/10 Food Allergies Unable to assess Usual Diet At Home Regular per RN screen Skin Integrity Comment: Damir: 15 Wounds: incision on abd s/p bowel resection Edema: Arm non-pitting (05/04) % PO intake Poor, avg of 33%x 47 meals Estimated Energy Expenditure (kcals/day) 3326-4157 kcal (25-30 kcal/kg CBW d/t GERIAT) Estimated Protein Required (g/day) 53-86g (0.8-1.3 g/kg CBW d/t JORGE and abd incision) Estimated Fluid Required (l/day) Defer to MD (CKD3) Problem/Etiology/Signs/Symptoms * Inadequate oral intake R/T decreased appetite AEB pt refusing meals and avg intake of 33% x 47 meals (*New). * Altered nutrition-related labs r/t kidney dysfunction AEB elevated BUN, Cre (Improving)*Ongoing Expected Outcomes/Goals PO intake provides >50% estimated nutrient needs, nutrition-related labs trending WNL, improvements in skin integrity, BM q1-3 days Dietitian Recommendations * Continue CCHO, Mechanical soft diet * Consider obtaining Hgba1c value * Consider appetite stimulant * Snack TID Follow up *Moderate risk: see pt in 3-5 days
--- NOTE | 2022-05-11 16:11 | NUR ---
Dietitian Recommendations * Continue CCHO, Mechanical soft diet * Consider obtaining Hgba1c value * Consider appetite stimulant * Snack TID LP, MS, RD Please refer to Nutrition F/U for details.
--- NOTE | 2022-05-11 19:11 | NUR ---
pt awake,alert,vss,resting in bed,no c/o pain or discomfort,order received to d/c pt to SNF,report called and given to theron ANDUJAR in [facility] by phone pt needs to be on IV antibiotic invanz for [address] belle requests will leave bond cath in secondary to urinary retention.pt informed of d/c to [facility] and agreed of d/c plan,called [facility] and spoke with antionette,she said ETA will be 830 pm.report endorsed to weight shifter staff.
[2022-05-11] MEDS: ATORVASTATIN 20 MG TABLET PO SCH (20:32)
[2022-05-11] MEDS: GABAPENTIN 100 MG CAPSULE PO SCH (20:33)
--- NOTE | 2022-05-11 21:00 | NUR ---
Received patient in bed, awake alert, complain of nausea, Bp is 166/89 , zofran 4 mg
--- NOTE | 2022-05-11 21:00 | NUR ---
Received patient in bed, awake alert, complain of nausea, Bp is 166/89 , zofran 4 mg ivp given as ordered. and coreg po given , patient is going to transfer to [facility], ambulance came in and rechecked p\ Addendum: 05/12/22 at 0159 by Los Naqvi RN RN bp 158/72. spoke to myriam
[2022-05-11] MEDS: ONDANSETRON HCL 4 MG/2 ML VIAL IVP PRN (21:13)
[2022-05-11] MEDS ORDERED: hydrALAZINE HCL 20 MG/ML VIAL IVP PRN (23:00)
[2022-05-11] MEDS ORDERED: cloNIDine HCL 0.2 MG TABLET PO PRN (23:00)
[2022-05-12] VITALS: BP_SYST 132
--- NOTE | 2022-05-12 | NUR ---
at 2130 , ambulance spoke to Isidoro from SNF, they don't feel comfortable to transfer patient due to high bp, ambulance left and they state they will come back. Robert HONG spoke to Physician and got the PRN order for high bp.
--- NOTE | 2022-05-12 01:00 | NUR ---
report given to ambulance and Isidoro from SNF. vs is stable, no distress. no c/o pain at this time. no nausea. bp 132/64. left via ambulance. son is aware.
[2022-05-12] MEDS ORDERED: amLODIPine BESYLATE 5 MG TABLET PO SCH (09:00)
--- NOTE | 2022-05-12 18:12 | NUR ---
CM: faxed the dc order to HCP , and lvm to [place], manager [facility] tel # [phone] , after hr cm # [phone].
== END 2022-05-12 01:00 | DRG 871 ==
LOC: SED 17:01 → SIC 19:17 → STU 04-21 08:43 → SMU 04-26 12:52
PROVIDERS: ADMIT Specialist; ATTEND Specialist
PROC: 02HV33Z Insertion of Infusion Device into Superior Vena Cava, Percutaneous Approach (ICD-10-PCS; principal; 2022-04-20)
PROC: B548ZZA Ultrasonography of Superior Vena Cava, Guidance (ICD-10-PCS; 2022-04-20)
PROC: 30233N1 Transfusion of Nonautologous Red Blood Cells into Peripheral Vein, Percutaneous Approach (ICD-10-PCS; 2022-05-09)
DX: A41.51 Sepsis due to Escherichia coli [E. coli] (principal); J69.0 Pneumonitis due to inhalation of food and vomit; K66.1 Hemoperitoneum; N17.9 Acute kidney failure, unspecified; E78.5 Hyperlipidemia, unspecified; I25.10 Atherosclerotic heart disease of native coronary artery without angina pectoris; E88.09 Other disorders of plasma-protein metabolism, not elsewhere classified; K21.9 Gastro-esophageal reflux disease without esophagitis; E11.42 Type 2 diabetes mellitus with diabetic polyneuropathy; D64.9 Anemia, unspecified; I48.91 Unspecified atrial fibrillation; I95.1 Orthostatic hypotension; Z20.822 Contact with and (suspected) exposure to COVID-19; I12.9 Hypertensive chronic kidney disease with stage 1 through stage 4 chronic kidney disease, or unspecified chronic kidney disease; E11.22 Type 2 diabetes mellitus with diabetic chronic kidney disease; N18.9 Chronic kidney disease, unspecified; Z90.49 Acquired absence of other specified parts of digestive tract; Z85.038 Personal history of other malignant neoplasm of large intestine
CPT/HCPCS: 36415; 70450-TC; 71045; 76376; 76705; 80048; 80053; 82550; 82570; 82962; 83605; 83735; 83880; 84100; 84302; 84484; 85025; 85610-TC; 85651-TC; 85730-TC; 86140; 86886; 86900; 86901; 86920; 87040; 87070-TC; 87081; 87086; 93005; 96361; 96374; 97110-GP; 97112-GP; 97116-GP; 97163-GP; 97530-GP; 99291; G0378; J0696; J0885; J1335; J1815; J1940; J2405; J2543; J3490; J7060; P9021; P9046; Q9964

== ENCOUNTER 2022-05-18 08:24 | Emergency (ER) | payer OTHER ==
[~2022-05-18] VITALS: Ht 167.6 cm; Wt 68.0 kg
[~2022-05-18 08:24] MED LIST: AMLO5TAB4 PO; APIX2.5T PO; ATOR40TA68 PO; BISA-79 PO; CARV12.548 PO; DOCU-144 PO; ERTA1VIA3 INJ; GABA-529 PO; GLIP10TA21 PO; INSU100V7 SUBCUT; LACT1CAP69; MOM PO; MULT-1117; PANT40GR; SENN-153; THIA100T73
[2022-05-18 08:35] VITALS: BP_SYST 148
--- NOTE | 2022-05-18 08:40 | NUR ---
DR. AMAYA AT BEDSIDE.
--- NOTE | 2022-05-18 08:40 | NUR ---
RECEIVED PT FROM WILFREDO BLAIR. PT BIBA BLS S/P FALL AT [facility]. PT WAS FOUND ON THE FLOOR BY STAFF. PT IS AAOX2 AND AT BASELINE PER SNF STAFF. EKG SHOWS PT IS IN AFIB HR 70-120S. PT NOTED TO TAKE SCHEDULED ELIQUIS FOR AFIM. ON R/A. NO COUGH OR SOB NOTED. ABDOMEN SOFT, NONTENDER, NONDISTENDED. PT HAS LEFT ABDOMEN J/P DRAIN IN PLACE WITH CLEAR YELLOW FLUID APPROX 20CC. SITE STITCHED TO SKIN, DRY PLACER MACHINE OPERATOR. NO S/S INFECTION AT SITE. FAYE CATH IN PLACE DRAINING BLOOD TINGED URINE. DR. AMAYA MADE AWARE. NO STAT LOCK NOTED. PT INCONTINENT OF STOOL. PT HAS IV CATH 22G PLACED TO RFA, FLUSHED, PATENT, WNL, COVERED WITH CDI DRESSING. PT DENIES PAIN.
--- NOTE | 2022-05-18 08:44 | NUR ---
URINE OBTAINED AND TAKEN TO LAB.
--- NOTE | 2022-05-18 08:45 | NUR ---
EKG COMPLETED AND GIVEN TO DR. AMAYA.
[2022-05-18 09:11] LABS: BILIRUBIN,URINE NEGATIVE (NEGATIVE); BLOOD, URINE 3+ (NEGATIVE); CLARITY/URINE CLOUDY (CLEAR); COLOR,URINE ORANGE (YELLOW); GLUCOSE,URINE NEGATIVE (NEGATIVE); KETONES,URINE TRACE (NEGATIVE); LEUKOCYTE ESTERASE ,URINE TRACE (NEGATIVE); NITRITE, URINE NEGATIVE (NEGATIVE); PROTEIN URINE 2+ (NEGATIVE); UROBILINOGEN,URINE 0.2 (0.2-1.0)
[2022-05-18] MEDS ORDERED: PRO40 PO (09:16)
[2022-05-18 09:52] LABS: BASOPHILS # (AUTO) 0.1 K/uL (0.0-0.2); BASOPHILS % (AUTO) 0.8 % (0.0-2.0); EOSINOPHILS # (AUTO) 0.5 K/uL (0.0-0.4); EOSINOPHILS % (AUTO) 4.7 % (0.0-4.0); HEMATOCRIT 35.7 % (36-54); HEMOGLOBIN 11.7 g/dL (14.0-18.0); LYMPHOCYTES # (AUTO) 1.5 K/uL (1.0-5.5); LYMPHOCYTES % (AUTO) 13.9 % (20.5-51.5); MEAN CORPUSCULAR HEMOGLOBIN 30 pg (27-31); MEAN CORPUSCULAR HGB CONC 33 % (32-36); MEAN CORPUSCULAR VOLUME 90 fL (79.0-98.0); MONOCYTES # (AUTO) 0.7 K/uL (0.0-1.0); MONOCYTES % (AUTO) 6.6 % (1.7-9.3); NEUTROPHILS # (AUTO) 8.1 K/uL (1.8-7.7); PLATELET COUNT (AUTO) 291 K/uL (130-430); RED BLOOD CELL COUNT(AUTO) 3.96 MIL/uL (4.2-6.2); RED CELL DISTRIBUTION WIDTH 18.2 % (9.0-15.0)
[2022-05-18 10:10] LABS: INR 1.3 (0.80-1.20); PROTHROMBIN TIME 13.3 SECS (9.5-12.5)
[2022-05-18 10:14] LABS: ANION GAP 7 (5-15); CHLORIDE 105 mmol/L (98-107); CREATININE 1.17 mg/dL (0.55-1.30); GLUCOSE 107 mg/dL (70-99); UREA NITROGEN, BLOOD 13 mg/dL (8-21)
[2022-05-18 10:27] LABS: ALANINE AMINOTRANSFERASE 29 U/L (12-78); ALBUMIN 1.9 g/dL (3.4-4.8); ASPARTATE AMINOTRANSFERASE 63 U/L (10-37); THYROID STIMULATING HORMONE 6.38 uIu/mL (0.34-4.82); TOTAL BILIRUBIN 0.5 mg/dL (0.0-1.0)
[2022-05-18 10:59] LABS: ACETONE, SERUM TRACE (NEGATIVE)
[2022-05-18 11:09] LABS: BACTERIA,URINE RARE /HPF (None Seen); RBC,URINE >100 /HPF (0-3); YEAST,URINE Moderate /HPF (None Seen)
--- NOTE | 2022-05-18 13:15 | NUR ---
PT GIVEN PUREED DIET LUNCH, PT COMPLETED 100% OF MEAL.
--- NOTE | 2022-05-18 13:17 | NUR ---
PT TO DISCHARGE AND RETURN TO [facility], TRANSPORT BY AMBULANCE BLS SCHEDULED AT [address] [facility] AND SPOKE TO ANNELIESE REYES LVN AND GAVE REPORT.
--- NOTE | 2022-05-18 14:30 | NUR ---
PT'S SON AT BEDSIDE. 50ML CLEAR YELLOW FLUID REMOVED FROM J/P DRAIN.
--- NOTE | 2022-05-18 16:37 | NUR ---
Patient given written and verbal discharge instructions and verbalizes understanding. ER MD discussed with patient the results and treatment provided. Patient in stable condition. ID arm band removed. IV catheter TO LFA 22G REMAINED INTACT, COVERED WITH CDI DRESSING, PT ARRIVED WITH IV CATH IN PLACED. JOSE ALFREDO DRAIN, INTACT. SITE WNL. Patient educated on pain management and to follow up with PMD. Pain Scale 0/10. Opportunity for questions provided and answered. Medication side effect fact sheet provided. PT ENDORSED TO AND DISCHARGE PACKET GIVE TO HINA GOTTLIEB FROM [facility].
[2022-05-18 16:44] VITALS: BP_SYST 157
== END 2022-05-18 16:37 ==
LOC: SED 08:24
DX: R53.1 Weakness (principal); E11.9 Type 2 diabetes mellitus without complications; K21.9 Gastro-esophageal reflux disease without esophagitis; I10 Essential (primary) hypertension; Z79.4 Long term (current) use of insulin; Z79.899 Other long term (current) drug therapy
CPT/HCPCS: 36415; 71045; 80053; 81000; 82009; 82550; 83605; 84443; 84484; 85025; 85610-TC; 85730-TC; 87086; 93005; 99285

== ENCOUNTER 2022-05-19 03:30 | Emergency (ER) | payer OTHER ==
[~2022-05-19] VITALS: Ht 160 cm; Wt 54.0 kg
[2022-05-19 03:30] VITALS: BP_SYST 180
[~2022-05-19 03:30] MED LIST changes: +PRO40 PO
--- NOTE | 2022-05-19 03:30 | NUR ---
Triaged and placed patient to ER bed 5 for evaluation. Report given to Vladimir RN for continuity of care. Bed placed in lowest position with side rails up. Instructed to notify ED staff for any changes in condition or worsening of symptoms while waiting to be seen by a provider. Patient verbalized understanding.
--- NOTE | 2022-05-19 03:58 | NUR ---
Dr. Hector at bedside examining the patient.
--- NOTE | 2022-05-19 04:05 | NUR ---
Patient taken to CT.
--- NOTE | 2022-05-19 07:30 | NUR ---
RECEIVED PT FROM WILFREDO BLAIR. ASSUMED CARE.
--- NOTE | 2022-05-19 07:33 | NUR ---
CALLED [facility] AT [phone] AND SPOKE TO CON GANN. MADE HIM AWARE THAT PT IS CLEARED TO DISCHARGE AND ETA FOR PREVIEW-AMBULANCE RUBBER THREAD SPOOLER IS 1030.
[2022-05-19] MEDS ORDERED: amLODIPine BESYLATE 5 MG TABLET PO ONE (08:45)
--- NOTE | 2022-05-19 09:00 | NUR ---
NORVASC 2.5 PO GIVEN FOR BP 174/62.
--- NOTE | 2022-05-19 11:00 | NUR ---
Patient given written and verbal discharge instructions and verbalizes understanding. ER MD discussed with patient the results and treatment provided. Patient in stable condition. ID arm band removed. IV catheter REMAINED INTACT TO RFA. PT CAME FROM [facility] WITH IV CATH IN PLACED. Patient educated on pain management and to follow up with PMD. Pain Scale 0/10. Opportunity for questions provided and answered. Medication side effect fact sheet provided. PT TRANSFERRED TO [facility] BY AMBULANCE BLS. REPORT GIVEN TO WILFREDO BILLINGS.
[2022-05-19 16:47] VITALS: BP_SYST 152
== END 2022-05-19 11:00 ==
LOC: SED 03:30
DX: Z04.3 Encounter for examination and observation following other accident (principal); E11.9 Type 2 diabetes mellitus without complications; K21.9 Gastro-esophageal reflux disease without esophagitis; I10 Essential (primary) hypertension; Z79.4 Long term (current) use of insulin; Z79.899 Other long term (current) drug therapy
CPT/HCPCS: 70450-TC; 76376; 99284